=== PATIENT | female | born 1995 | race Caucasian/White ===

== ENCOUNTER 2022-03-07 13:03 | Inpatient (IN) | payer BC, SELFPAY ==
--- NOTE | 2022-03-07 13:10 | ED.GENADULT ---
HPI - General Adult General Chief complaint: Altered Mental Status <JOANN Triana - Last Filed: 03/07/22 17:38> Stated complaint: PSYCH EVAL <JOANN Triana - Last Filed: 03/07/22 17:38> Time Seen by Provider: 03/07/22 13:10 <JOANN Triana - Last Filed: 03/07/22 17:38> Source: patient, family (father) and EMS <JOANN Triana - Last Filed: 03/07/22 17:38> Mode of arrival: EMS <JOANN Triana Last Filed: 03/07/22 17:38> Limitations: no limitations <JOANN Triana Last Filed: 03/07/22 17:38> History of Present Illness HPI narrative: Patient is a 26 year old female presenting to the emergency department today after refusing to take her medications, not eating, and not drinking for 3 days. EMS states that the patient was picked up at [facility] where she was inpatient for psychosis and depression. I spoke to the staff taking care of her at [facility] who stated that the patient was refusing to take her medication, eat, drink, or even get out of bed for the entire 72 hours she was in their facility. Staff stated that the patient was prescribed Olanzapine and Lexapro but never took a dose. Patient's father states that he would like the patient to be admitted in patient here and started on the medications she is supposed to be on. Patient's father states that even though she only looks depressed now, she has moments of delusions and psychosis. Patient denies any dizziness, lightheadedness, abdominal pain, nausea, vomiting, fever, chills, blurry vision, double vision, loss of vision, chest pain, difficulty breathing, shortness of breath, back pain, night sweats, pain with urination, increased urinary frequency, increased urinary urgency, blood in her urine or stool, syncope or a near syncopal episode, recent trauma or falls, bowel incontinence, bladder incontinence, bowel retention, bladder retention, or any other complaints at this time. 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 Patient states that she would like a shower. <JOANN Triana Last Filed: 03/07/22 17:38> Onset (ago): day(s) <JOANN Triana - Last Filed: 03/07/22 17:38> Severity: moderate <JOANN Triana - Last Filed: 03/07/22 17:38> Severity scale (1-10): 4 <JOANN Triana - Last Filed: 03/07/22 17:38> Relieving factors: none <JOANN Triana - Last Filed: 03/07/22 17:38> Exacerbating factors: none <JOANN Triana - Last Filed: 03/07/22 17:38> Associated symptoms: denies other symptoms <JOANN Triana - Last Filed: 03/07/22 17:38> Treatments prior to arrival: none <JOANN Triana - Last Filed: 03/07/22 17:38> Related Data Home medications: Home Medications Medication Instructions Recorded Confirmed albuterol sulfate 90 mcg/actuation 2 puff inhalation QID PRN Dyspnea 03/07/22 03/07/22 aerosol inhaler escitalopram oxalate 10 mg tablet 10 mg PO DAILY 03/07/22 03/07/22 hydroxyzine HCl 50 mg tablet 50 mg PO Q6H PRN Anxiety 03/07/22 03/07/22 loratadine 10 mg tablet 10 mg PO DAILY PRN Allergy Symptoms 03/07/22 03/07/22 lorazepam 0.5 mg tablet 0.5 mg PO Q6H PRN Anxiety 03/07/22 03/07/22 melatonin 3 mg tablet 3 mg PO BEDTIME 03/07/22 03/07/22 olanzapine 2.5 mg tablet 2.5 mg PO BID 03/07/22 03/07/22 <JOANN Triana - Last Filed: 03/07/22 17:38> Allergies/adverse reactions: Allergies Allergy/AdvReac Type Severity Reaction Status Date / Time No Known Allergies Allergy Verified 03/07/22 13:22 <JOANN Triana - Last Filed: 03/07/22 17:38> Review of Systems Constitutional: Constitutional: Reports no additional constitutional complaints, Denies chills, Denies fever(s), Reports lethargy, Denies night sweats and Reports poor appetite <JOANN Triana - Last Filed: 03/07/22 17:38> Eyes: Eyes: Reports no additional eye complaints, Denies blurry vision, Denies change in vision, Denies diplopia, Denies eye discharge, Denies loss of vision and Denies eye pain <JOANN Triana Last Filed: 03/07/22 17:38> ENT: Denies dizziness <JOANN Triana Last Filed: 03/07/22 17:38> Cardiovascular: Cardiovascular: Reports no additional cardiovascular complaints, Denies chest pain, Denies lightheadedness, Denies Loss of Consciousness and Denies dyspnea <JOANN Triana - Last Filed: 03/07/22 17:38> Respiratory: Respiratory: Reports no additional respiratory complaints and Denies dyspnea <JOANN Triana Last Filed: 03/07/22 17:38> Gastrointestinal: Gastrointestinal: Reports no additional gastrointestinal complaints, Denies abdominal pain, Denies melena, Denies hematochezia, Denies change in bowel habits and Denies change in stool character <JOANN Triana Last Filed: 03/07/22 17:38> Genitourinary: Genitourinary: Denies hematuria, Denies urinary frequency, Denies dysuria, Denies urinary incontinence, Denies urinary hesitancy and Denies urinary urgency <JOANN Triana Last Filed: 03/07/22 17:38> Musculoskeletal: Musculoskeletal: Reports no additional musculoskeletal complaints, Denies numbness and Denies tingling <JOANN Triana Last Filed: 03/07/22 17:38> Neurologic: Denies dizziness, Denies loss of vision, Denies numbness and Denies tingling <JOANN Triana Last Filed: 03/07/22 17:38> Psychiatric: Psychiatric: Reports depression, Reports hopelessness, Denies homicidal ideation and Denies suicidal ideation <JOANN Triana Last Filed: 03/07/22 17:38> Endocrine: Endocrine: Reports no additional endocrine complaints <JOANN Triana Last Filed: 03/07/22 17:38> Hematologic/Lymphatic: Hematologic/Lymphatic: Reports no additional hematologic/lymphatic complaints <JOANN Triana - Last Filed: 03/07/22 17:38> Allergic/Immunologic: Allergic/Immunologic: Reports no additional allergic/immunologic complaints <JOANN Triana - Last Filed: 03/07/22 17:38> [facility] Past Medical History Attestation statement: The following information was validated with the patient. (and the patient's father) <JOANN Triana - Last Filed: 03/07/22 17:38> Source: old records reviewed and obtained from family (patient's father) <JOANN Triana - Last Filed: 03/07/22 17:38> Social History Social History: Social History Advance Directives: No Advance Directives Information Provided: Yes Healthcare Proxy: No Guardian: No <JOANN Triana - Last Filed: 03/07/22 17:38> Physical Exam ED Vital Signs: Vital Signs - 24 hr 03/08/22 10:30 03/08/22 16:00 03/08/22 17:51 Temperature 97.9 F 97.9 F Pulse Rate 59 58 67 Respiratory Rate 16 18 Blood Pressure 105/66 114/78 115/83 Pulse Oximetry 98 98 97 Oxygen Delivery Method Room Air Room Air Room Air 03/09/22 06:20 03/09/22 07:53 Temperature 97.8 F 98.1 F Pulse Rate 53 69 Respiratory Rate 16 19 Blood Pressure 115/76 115/78 Pulse Oximetry 98 96 Oxygen Delivery Method Room Air Room Air BMI result Body Mass Index 18.8 <JOANN Triana - Last Filed: 03/07/22 17:38> Vital Signs - 24 hr 03/08/22 10:30 03/08/22 16:00 03/08/22 17:51 Temperature 97.9 F 97.9 F Pulse Rate 59 58 67 Respiratory Rate 16 18 Blood Pressure 105/66 114/78 115/83 Pulse Oximetry 98 98 97 Oxygen Delivery Method Room Air Room Air Room Air 03/09/22 06:20 03/09/22 07:53 Temperature 97.8 F 98.1 F Pulse Rate 53 69 Respiratory Rate 16 19 Blood Pressure 115/76 115/78 Pulse Oximetry 98 96 Oxygen Delivery Method Room Air Room Air BMI result Body Mass Index 18.8 <Damien Wilson MD - Last Filed: 03/09/22 10:07> Const General: cooperative, no acute distress, alert and awake <JOANN Triana - Last Filed: 03/07/22 17:38> Nutritional Appearance: well nourished <Airam Walsh PA - Last Filed: 03/07/22 17:38> Orientation/consciousness: patient oriented x3 <JOANN Triana - Last Filed: 03/07/22 17:38> Limitations: no limitations <Airam Walsh PA - Last Filed: 03/07/22 17:38> HENMT Head: Yes normal to inspection and Yes atraumatic <Airam Walsh PA - Last Filed: 03/07/22 17:38> Ears: hearing grossly normal bilaterally and external ears normal <Airam Walsh PA - Last Filed: 03/07/22 17:38> General nose exam: Normal external nose present, no nasal discharge noted and no epistaxis <Airam Walsh PA - Last Filed: 03/07/22 17:38> Face and sinus: Yes normal facial exam, No abrasion and No laceration <Airam Walsh PA - Last Filed: 03/07/22 17:38> Mouth: Normal oral and palatal mucosa present, no drooling and no muffled voice <Airam Walsh PA - Last Filed: 03/07/22 17:38> Eyes General: appearance normal, both eyes and all related structures <JOANN Triana - Last Filed: 03/07/22 17:38> Periorbital: periorbital findings normal <Airam Walsh PA - Last Filed: 03/07/22 17:38> Eyelids: Yes eyelids normal <Airam Walsh PA - Last Filed: 03/07/22 17:38> Conjunctivae: conjunctivae normal <Airam Walsh PA - Last Filed: 03/07/22 17:38> Pupils: Equal, round and reactive pupils present <Airam Walsh PA - Last Filed: 03/07/22 17:38> EOM: EOMs intact bilaterally <Airam Walsh PA - Last Filed: 03/07/22 17:38> Neck Neck: Yes normal visual inspection, Yes full ROM and Yes no lymphadenopathy <Airam Walsh PA - Last Filed: 03/07/22 17:38> Chest Chest palpation & inspection: normal inspection of the chest <Airam ChristianJOANN barry - Last Filed: 03/07/22 17:38> Resp Effort & Inspection: normal respiratory effort and able to speak in complete sentences <Airam WalshJOANN - Last Filed: 03/07/22 17:38> Auscultation: clear to auscultation bilaterally <Airam ChristianJOANN barry - Last Filed: 03/07/22 17:38> Cardio Rate: regular rate <Airam Walsh [place] - Last Filed: 03/07/22 17:38> Rhythm: regular rhythm <Airam WalshJOANN - Last Filed: 03/07/22 17:38> GI Inspection: Yes normal to inspection <Airam WalshJOANN - Last Filed: 03/07/22 17:38> Neuro General: patient oriented x3 and moves all extremities <Airamglenn ChristianJOANN barry - Last Filed: 03/07/22 17:38> Cranial nerves: Yes Equal, round and reactive pupils present <Airam WalshJOANN - Last Filed: 03/07/22 17:38> Cognition (Neuro): normal cognition <Airam ChristianJOANN barry - Last Filed: 03/07/22 17:38> Motor exam (neuro): 5/5 motor strength present throughout <Airam WalshJOANN - Last Filed: 03/07/22 17:38> Sensory Exam: Normal double simultaneous stimulation for sensation <Airam ChristianJOANN barry - Last Filed: 03/07/22 17:38> Coordination: [id number] test normal <Airam ChristianJOANN barry - Last Filed: 03/07/22 17:38> Extrem General: Yes normal to inspection, Yes full ROM and Yes capillary refill normal <Airam ChristianJOANN barry - Last Filed: 03/07/22 17:38> Psych Appearance: disheveled <Airamglenn ChristianJOANN barry - Last Filed: 03/07/22 17:38> Mental Status: mental status grossly normal <Airamglenn ChristianJOANN barry - Last Filed: 03/07/22 17:38> Speech and movement: Clear speech present <Airam JOANN Walsh - Last Filed: 03/07/22 17:38> Affect: Indifferent affect present <JOANN Triana - Last Filed: 03/07/22 17:38> Attitude: Guarded attititude/behavior present and Avoids eye contact (attititude/behavior) <JOANN Triana - Last Filed: 03/07/22 17:38> Thought process: Normal thought process present <JOANN Triana - Last Filed: 03/07/22 17:38> Thought content: Depressive thoughts present <JOANN Triana - Last Filed: 03/07/22 17:38> Insight: Limited insight present (Psych) <JOANN Triana - Last Filed: 03/07/22 17:38> Course Reevaluation(s) Reevaluation #1: 10 Am 03/09/2022 pt was signed out to me at [address] Smith,no new complaints,continue bed search section 12 for Depression <Damien Wilson MD - Last Filed: 03/09/22 10:07> Medical Decision Making MDM Narrative Medical decision making narrative: Patient is a 26 year old female presenting to the emergency department today with depression and non-compliance. Patient's physical exam showed an indifferent, disheveled, individual. Patient's initial blood sugar was 53. I attempted to have the patient eat or drink but she refused all requests to do so. Patient eventually relented to having an IV placed and she was given D50 at that time with a slow rate D5W drip. Patient's blood work was unremarkable. Patient's urine is still pending at this time. I explained my physical exam findings as well as all test results to the patient and the patient's father. I answered all questions asked by the patient and the patient's father. I spoke to the CARE team who agreed that the patient needs inpatient psychiatric hospitalization here [place] [facility] As of right now, the patient is staying here voluntarily. If she were to leave, a section 12 should be obtained as she is a harm to herself by participating in medication non-compliance and actively starving herself. <JOANN Triana - Last Filed: 03/07/22 17:38> Medical Records Medical records reviewed: Yes I reviewed the patient's medical records. <JOANN Triana - Last Filed: 03/07/22 17:38> Lab Data Lab results reviewed: Yes I reviewed the patient's lab results. <JOANN Triana - Last Filed: 03/07/22 17:38> Result diagrams: : 03/07/22 17:02 03/07/22 17:02 <JOANN Triana - Last Filed: 03/07/22 17:38> Labs: Lab Results 03/07/22 03/07/22 03/07/22 Range/Units 13:26 15:05 17:02 WBC (4.8-10.8) X10*3/uL RBC (4.20-5.50) X10*6/uL Hgb (12.0-16.0) g/dl Hct (37.0-47.0) % MCV (80.0-98.0) fL MCH (27.0-33.0) pg MCHC (31.0-35.0) g/dl RDW (11.0-16.0) % Plt Count (160-400) X10*3/uL MPV (9.4-12.3) fL Immature Gran % (Auto) (0.0-0.4) % Neut % (Auto) (45-73) % Lymph % (Auto) (20-40) % [place] % (Auto) (2-11) % Eos % (Auto) (0-4) % Baso % (Auto) (0-2) % Lymph # (Auto) (1.2-4.9) X10*3/uL [place] # (Auto) (0.1-1.2) X10*3/uL Eos # (Auto) (0.0-0.4) X10*3/uL Baso # (Auto) (0.0-0.2) X10*3/uL Abs Immat Gran (auto) (0.00-0.03) X10*3/uL Absolute Neuts (auto) (2.0-8.3) x10*3/uL Absolute Nucleated RBC (0.0-0.012) X10*3/uL Nucleated RBC % (auto) (0.0-0.2) /100WBC Sodium 136 (135-145) mmol/L Potassium 4.4 (3.3-5.1) mmol/L Chloride 106 (96-108) mmol/L Carbon Dioxide 18 L (22-29) mmol/L Anion Gap 16 (12-20) BUN 10 (9-16) mg/dL Creatinine 0.89 (0.5-1.4) mg/dL Estim Creat Clear Calc 76.8 Estimated GFR > 60 POC Glucose 53 L* 204 H (60-115) mg/dL Random Glucose 147 H (60-115) mg/dL Calcium 9.2 (8.4-10.2) mg/dL Total Bilirubin 1.3 H (0.0-1.0) mg/dL AST 23 (5-31) U/L ALT 27 (0-31) U/L Alkaline Phosphatase 51 (39-117) U/L Total Protein 7.7 (6.5-8.0) g/dL Albumin 4.6 (3.5-5.0) g/dL Urine Test (NEGATIVE) Salicylates < 5.0 L (15-30) mg/dL Urine Opiates Screen (Not Detect) Urine Fentanyl Screen (Not Detect) Acetaminophen < 1 (<30) mcg/mL Ur Barbiturates Screen (Not Detect) Ur Phencyclidine Scrn (Not Detect) Ur Amphetamines Screen (Not Detect) U Benzodiazepines Scrn (Not Detect) Urine Cocaine Screen (Not Detect) U Marijuana (THC) Screen (Not Detect) Ethyl Alcohol mg/dL COVID-19 (JESSICA) (Negative) COVID-19 Clin Com 03/07/22 03/07/22 03/07/22 Range/Units 17:02 17:02 19:30 WBC 5.6 (4.8-10.8) X10*3/uL RBC 4.86 (4.20-5.50) X10*6/uL Hgb 14.1 (12.0-16.0) g/dl Hct 41.4 (37.0-47.0) % MCV 85.2 (80.0-98.0) fL MCH 29.0 (27.0-33.0) pg MCHC 34.1 (31.0-35.0) g/dl RDW 13.2 (11.0-16.0) % Plt Count 319 (160-400) X10*3/uL MPV 9.8 (9.4-12.3) fL Immature Gran % (Auto) 0.0 (0.0-0.4) % Neut % (Auto) 51.5 (45-73) % Lymph % (Auto) 37.7 (20-40) % [place] % (Auto) 9.5 (2-11) % Eos % (Auto) 0.4 (0-4) % Baso % (Auto) 0.9 (0-2) % Lymph # (Auto) 2.1 (1.2-4.9) X10*3/uL [place] # (Auto) 0.5 (0.1-1.2) X10*3/uL Eos # (Auto) 0.0 (0.0-0.4) X10*3/uL Baso # (Auto) 0.1 (0.0-0.2) X10*3/uL Abs Immat Gran (auto) 0.00 (0.00-0.03) X10*3/uL Absolute Neuts (auto) 2.9 (2.0-8.3) x10*3/uL Absolute Nucleated RBC 0.000 (0.0-0.012) X10*3/uL Nucleated RBC % (auto) 0.0 (0.0-0.2) /100WBC Sodium (135-145) mmol/L Potassium (3.3-5.1) mmol/L Chloride (96-108) mmol/L Carbon Dioxide (22-29) mmol/L Anion Gap (12-20) BUN (9-16) mg/dL Creatinine (0.5-1.4) mg/dL Estim Creat Clear Calc Estimated GFR POC Glucose (60-115) mg/dL Random Glucose (60-115) mg/dL Calcium (8.4-10.2) mg/dL Total Bilirubin (0.0-1.0) mg/dL AST (5-31) U/L ALT (0-31) U/L Alkaline Phosphatase (39-117) U/L Total Protein (6.5-8.0) g/dL Albumin (3.5-5.0) g/dL Urine Test (NEGATIVE) Salicylates (15-30) mg/dL Urine Opiates Screen (Not Detect) Urine Fentanyl Screen (Not Detect) Acetaminophen (<30) mcg/mL Ur Barbiturates Screen (Not Detect) Ur Phencyclidine Scrn (Not Detect) Ur Amphetamines Screen (Not Detect) U Benzodiazepines Scrn (Not Detect) Urine Cocaine Screen (Not Detect) U Marijuana (THC) Screen (Not Detect) Ethyl Alcohol < 10 mg/dL COVID-19 (JESSICA) Negative (Negative) COVID-19 Clin Com See Note 03/08/22 03/08/22 03/08/22 Range/Units 07:20 09:43 09:43 WBC (4.8-10.8) X10*3/uL RBC (4.20-5.50) X10*6/uL Hgb (12.0-16.0) g/dl Hct (37.0-47.0) % MCV (80.0-98.0) fL MCH (27.0-33.0) pg MCHC (31.0-35.0) g/dl RDW (11.0-16.0) % Plt Count (160-400) X10*3/uL MPV (9.4-12.3) fL Immature Gran % (Auto) (0.0-0.4) % Neut % (Auto) (45-73) % Lymph % (Auto) (20-40) % [place] % (Auto) (2-11) % Eos % (Auto) (0-4) % Baso % (Auto) (0-2) % Lymph # (Auto) (1.2-4.9) X10*3/uL [place] # (Auto) (0.1-1.2) X10*3/uL Eos # (Auto) (0.0-0.4) X10*3/uL Baso # (Auto) (0.0-0.2) X10*3/uL Abs Immat Gran (auto) (0.00-0.03) X10*3/uL Absolute Neuts (auto) (2.0-8.3) x10*3/uL Absolute Nucleated RBC (0.0-0.012) X10*3/uL Nucleated RBC % (auto) (0.0-0.2) /100WBC Sodium (135-145) mmol/L Potassium (3.3-5.1) mmol/L Chloride (96-108) mmol/L Carbon Dioxide (22-29) mmol/L Anion Gap (12-20) BUN (9-16) mg/dL Creatinine (0.5-1.4) mg/dL Estim Creat Clear Calc Estimated GFR POC Glucose 75 (60-115) mg/dL Random Glucose (60-115) mg/dL Calcium (8.4-10.2) mg/dL Total Bilirubin (0.0-1.0) mg/dL AST (5-31) U/L ALT (0-31) U/L Alkaline Phosphatase (39-117) U/L Total Protein (6.5-8.0) g/dL Albumin (3.5-5.0) g/dL Urine Test NEGATIVE (NEGATIVE) Salicylates (15-30) mg/dL Urine Opiates Screen Not Detected (Not Detect) Urine Fentanyl Screen Not Detected (Not Detect) Acetaminophen (<30) mcg/mL Ur Barbiturates Screen Not Detected (Not Detect) Ur Phencyclidine Scrn Not Detected (Not Detect) Ur Amphetamines Screen Not Detected (Not Detect) U Benzodiazepines Scrn Not Detected (Not Detect) Urine Cocaine Screen Not Detected (Not Detect) U Marijuana (THC) Screen Not Detected (Not Detect) Ethyl Alcohol mg/dL COVID-19 (JESSICA) (Negative) COVID-19 Clin Com 03/08/22 Range/Units 16:09 WBC (4.8-10.8) X10*3/uL RBC (4.20-5.50) X10*6/uL Hgb (12.0-16.0) g/dl Hct (37.0-47.0) % MCV (80.0-98.0) fL MCH (27.0-33.0) pg MCHC (31.0-35.0) g/dl RDW (11.0-16.0) % Plt Count (160-400) X10*3/uL MPV (9.4-12.3) fL Immature Gran % (Auto) (0.0-0.4) % Neut % (Auto) (45-73) % Lymph % (Auto) (20-40) % [place] % (Auto) (2-11) % Eos % (Auto) (0-4) % Baso % (Auto) (0-2) % Lymph # (Auto) (1.2-4.9) X10*3/uL [place] # (Auto) (0.1-1.2) X10*3/uL Eos # (Auto) (0.0-0.4) X10*3/uL Baso # (Auto) (0.0-0.2) X10*3/uL Abs Immat Gran (auto) (0.00-0.03) X10*3/uL Absolute Neuts (auto) (2.0-8.3) x10*3/uL Absolute Nucleated RBC (0.0-0.012) X10*3/uL Nucleated RBC % (auto) (0.0-0.2) /100WBC Sodium (135-145) mmol/L Potassium (3.3-5.1) mmol/L Chloride (96-108) mmol/L Carbon Dioxide (22-29) mmol/L Anion Gap (12-20) BUN (9-16) mg/dL Creatinine (0.5-1.4) mg/dL Estim Creat Clear Calc Estimated GFR POC Glucose 61 (60-115) mg/dL Random Glucose (60-115) mg/dL Calcium (8.4-10.2) mg/dL Total Bilirubin (0.0-1.0) mg/dL AST (5-31) U/L ALT (0-31) U/L Alkaline Phosphatase (39-117) U/L Total Protein (6.5-8.0) g/dL Albumin (3.5-5.0) g/dL Urine Test (NEGATIVE) Salicylates (15-30) mg/dL Urine Opiates Screen (Not Detect) Urine Fentanyl Screen (Not Detect) Acetaminophen (<30) mcg/mL Ur Barbiturates Screen (Not Detect) Ur Phencyclidine Scrn (Not Detect) Ur Amphetamines Screen (Not Detect) U Benzodiazepines Scrn (Not Detect) Urine Cocaine Screen (Not Detect) U Marijuana (THC) Screen (Not Detect) Ethyl Alcohol mg/dL COVID-19 (JESSICA) (Negative) COVID-19 Clin Com <JOANN Triana - Last Filed: 03/07/22 17:38> Lab Results 03/07/22 03/07/22 03/07/22 Range/Units 13:26 15:05 17:02 WBC (4.8-10.8) X10*3/uL RBC (4.20-5.50) X10*6/uL Hgb (12.0-16.0) g/dl Hct (37.0-47.0) % MCV (80.0-98.0) fL MCH (27.0-33.0) pg MCHC (31.0-35.0) g/dl RDW (11.0-16.0) % Plt Count (160-400) X10*3/uL MPV (9.4-12.3) fL Immature Gran % (Auto) (0.0-0.4) % Neut % (Auto) (45-73) % Lymph % (Auto) (20-40) % [place] % (Auto) (2-11) % Eos % (Auto) (0-4) % Baso % (Auto) (0-2) % Lymph # (Auto) (1.2-4.9) X10*3/uL [place] # (Auto) (0.1-1.2) X10*3/uL Eos # (Auto) (0.0-0.4) X10*3/uL Baso # (Auto) (0.0-0.2) X10*3/uL Abs Immat Gran (auto) (0.00-0.03) X10*3/uL Absolute Neuts (auto) (2.0-8.3) x10*3/uL Absolute Nucleated RBC (0.0-0.012) X10*3/uL Nucleated RBC % (auto) (0.0-0.2) /100WBC Sodium 136 (135-145) mmol/L Potassium 4.4 (3.3-5.1) mmol/L Chloride 106 (96-108) mmol/L Carbon Dioxide 18 L (22-29) mmol/L Anion Gap 16 (12-20) BUN 10 (9-16) mg/dL Creatinine 0.89 (0.5-1.4) mg/dL Estim Creat Clear Calc 76.8 Estimated GFR > 60 POC Glucose 53 L* 204 H (60-115) mg/dL Random Glucose 147 H (60-115) mg/dL Calcium 9.2 (8.4-10.2) mg/dL Total Bilirubin 1.3 H (0.0-1.0) mg/dL AST 23 (5-31) U/L ALT 27 (0-31) U/L Alkaline Phosphatase 51 (39-117) U/L Total Protein 7.7 (6.5-8.0) g/dL Albumin 4.6 (3.5-5.0) g/dL Urine Test (NEGATIVE) Salicylates < 5.0 L (15-30) mg/dL Urine Opiates Screen (Not Detect) Urine Fentanyl Screen (Not Detect) Acetaminophen < 1 (<30) mcg/mL Ur Barbiturates Screen (Not Detect) Ur Phencyclidine Scrn (Not Detect) Ur Amphetamines Screen (Not Detect) U Benzodiazepines Scrn (Not Detect) Urine Cocaine Screen (Not Detect) U Marijuana (THC) Screen (Not Detect) Ethyl Alcohol mg/dL COVID-19 (JESSICA) (Negative) COVID-19 Clin Com 03/07/22 03/07/22 03/07/22 Range/Units 17:02 17:02 19:30 WBC 5.6 (4.8-10.8) X10*3/uL RBC 4.86 (4.20-5.50) X10*6/uL Hgb 14.1 (12.0-16.0) g/dl Hct 41.4 (37.0-47.0) % MCV 85.2 (80.0-98.0) fL MCH 29.0 (27.0-33.0) pg MCHC 34.1 (31.0-35.0) g/dl RDW 13.2 (11.0-16.0) % Plt Count 319 (160-400) X10*3/uL MPV 9.8 (9.4-12.3) fL Immature Gran % (Auto) 0.0 (0.0-0.4) % Neut % (Auto) 51.5 (45-73) % Lymph % (Auto) 37.7 (20-40) % [place] % (Auto) 9.5 (2-11) % Eos % (Auto) 0.4 (0-4) % Baso % (Auto) 0.9 (0-2) % Lymph # (Auto) 2.1 (1.2-4.9) X10*3/uL [place] # (Auto) 0.5 (0.1-1.2) X10*3/uL Eos # (Auto) 0.0 (0.0-0.4) X10*3/uL Baso # (Auto) 0.1 (0.0-0.2) X10*3/uL Abs Immat Gran (auto) 0.00 (0.00-0.03) X10*3/uL Absolute Neuts (auto) 2.9 (2.0-8.3) x10*3/uL Absolute Nucleated RBC 0.000 (0.0-0.012) X10*3/uL Nucleated RBC % (auto) 0.0 (0.0-0.2) /100WBC Sodium (135-145) mmol/L Potassium (3.3-5.1) mmol/L Chloride (96-108) mmol/L Carbon Dioxide (22-29) mmol/L Anion Gap (12-20) BUN (9-16) mg/dL Creatinine (0.5-1.4) mg/dL Estim Creat Clear Calc Estimated GFR POC Glucose (60-115) mg/dL Random Glucose (60-115) mg/dL Calcium (8.4-10.2) mg/dL Total Bilirubin (0.0-1.0) mg/dL AST (5-31) U/L ALT (0-31) U/L Alkaline Phosphatase (39-117) U/L Total Protein (6.5-8.0) g/dL Albumin (3.5-5.0) g/dL Urine Test (NEGATIVE) Salicylates (15-30) mg/dL Urine Opiates Screen (Not Detect) Urine Fentanyl Screen (Not Detect) Acetaminophen (<30) mcg/mL Ur Barbiturates Screen (Not Detect) Ur Phencyclidine Scrn (Not Detect) Ur Amphetamines Screen (Not Detect) U Benzodiazepines Scrn (Not Detect) Urine Cocaine Screen (Not Detect) U Marijuana (THC) Screen (Not Detect) Ethyl Alcohol < 10 mg/dL COVID-19 (JESSICA) Negative (Negative) COVID-19 Clin Com See Note 03/08/22 03/08/22 03/08/22 Range/Units 07:20 09:43 09:43 WBC (4.8-10.8) X10*3/uL RBC (4.20-5.50) X10*6/uL Hgb (12.0-16.0) g/dl Hct (37.0-47.0) % MCV (80.0-98.0) fL MCH (27.0-33.0) pg MCHC (31.0-35.0) g/dl RDW (11.0-16.0) % Plt Count (160-400) X10*3/uL MPV (9.4-12.3) fL Immature Gran % (Auto) (0.0-0.4) % Neut % (Auto) (45-73) % Lymph % (Auto) (20-40) % [place] % (Auto) (2-11) % Eos % (Auto) (0-4) % Baso % (Auto) (0-2) % Lymph # (Auto) (1.2-4.9) X10*3/uL [place] # (Auto) (0.1-1.2) X10*3/uL Eos # (Auto) (0.0-0.4) X10*3/uL Baso # (Auto) (0.0-0.2) X10*3/uL Abs Immat Gran (auto) (0.00-0.03) X10*3/uL Absolute Neuts (auto) (2.0-8.3) x10*3/uL Absolute Nucleated RBC (0.0-0.012) X10*3/uL Nucleated RBC % (auto) (0.0-0.2) /100WBC Sodium (135-145) mmol/L Potassium (3.3-5.1) mmol/L Chloride (96-108) mmol/L Carbon Dioxide (22-29) mmol/L Anion Gap (12-20) BUN (9-16) mg/dL Creatinine (0.5-1.4) mg/dL Estim Creat Clear Calc Estimated GFR POC Glucose 75 (60-115) mg/dL Random Glucose (60-115) mg/dL Calcium (8.4-10.2) mg/dL Total Bilirubin (0.0-1.0) mg/dL AST (5-31) U/L ALT (0-31) U/L Alkaline Phosphatase (39-117) U/L Total Protein (6.5-8.0) g/dL Albumin (3.5-5.0) g/dL Urine Test NEGATIVE (NEGATIVE) Salicylates (15-30) mg/dL Urine Opiates Screen Not Detected (Not Detect) Urine Fentanyl Screen Not Detected (Not Detect) Acetaminophen (<30) mcg/mL Ur Barbiturates Screen Not Detected (Not Detect) Ur Phencyclidine Scrn Not Detected (Not Detect) Ur Amphetamines Screen Not Detected (Not Detect) U Benzodiazepines Scrn Not Detected (Not Detect) Urine Cocaine Screen Not Detected (Not Detect) U Marijuana (THC) Screen Not Detected (Not Detect) Ethyl Alcohol mg/dL COVID-19 (JESSICA) (Negative) COVID-19 Clin Com 03/08/22 Range/Units 16:09 WBC (4.8-10.8) X10*3/uL RBC (4.20-5.50) X10*6/uL Hgb (12.0-16.0) g/dl Hct (37.0-47.0) % MCV (80.0-98.0) fL MCH (27.0-33.0) pg MCHC (31.0-35.0) g/dl RDW (11.0-16.0) % Plt Count (160-400) X10*3/uL MPV (9.4-12.3) fL Immature Gran % (Auto) (0.0-0.4) % Neut % (Auto) (45-73) % Lymph % (Auto) (20-40) % [place] % (Auto) (2-11) % Eos % (Auto) (0-4) % Baso % (Auto) (0-2) % Lymph # (Auto) (1.2-4.9) X10*3/uL [place] # (Auto) (0.1-1.2) X10*3/uL Eos # (Auto) (0.0-0.4) X10*3/uL Baso # (Auto) (0.0-0.2) X10*3/uL Abs Immat Gran (auto) (0.00-0.03) X10*3/uL Absolute Neuts (auto) (2.0-8.3) x10*3/uL Absolute Nucleated RBC (0.0-0.012) X10*3/uL Nucleated RBC % (auto) (0.0-0.2) /100WBC Sodium (135-145) mmol/L Potassium (3.3-5.1) mmol/L Chloride (96-108) mmol/L Carbon Dioxide (22-29) mmol/L Anion Gap (12-20) BUN (9-16) mg/dL Creatinine (0.5-1.4) mg/dL Estim Creat Clear Calc Estimated GFR POC Glucose 61 (60-115) mg/dL Random Glucose (60-115) mg/dL Calcium (8.4-10.2) mg/dL Total Bilirubin (0.0-1.0) mg/dL AST (5-31) U/L ALT (0-31) U/L Alkaline Phosphatase (39-117) U/L Total Protein (6.5-8.0) g/dL Albumin (3.5-5.0) g/dL Urine Test (NEGATIVE) Salicylates (15-30) mg/dL Urine Opiates Screen (Not Detect) Urine Fentanyl Screen (Not Detect) Acetaminophen (<30) mcg/mL Ur Barbiturates Screen (Not Detect) Ur Phencyclidine Scrn (Not Detect) Ur Amphetamines Screen (Not Detect) U Benzodiazepines Scrn (Not Detect) Urine Cocaine Screen (Not Detect) U Marijuana (THC) Screen (Not Detect) Ethyl Alcohol mg/dL COVID-19 (JESSICA) (Negative) COVID-19 Clin Com <Damien Wilson MD - Last Filed: 03/09/22 10:07> Discharge Plan Discharge Clinical Impression: Hypoglycemia, Depression, Refuses to eat, Non compliance w medication regimen <JOANN Triana - Last Filed: 03/07/22 17:38> Patient Disposition: Still a Patient <JOANN Triana - Last Filed: 03/07/22 17:38> Prescriptions: No Action hydroxyzine HCl 50 mg Tablet 50 mg PO Q6H PRN (Reason: Anxiety) melatonin 3 mg Tablet 3 mg PO BEDTIME olanzapine 2.5 mg Tablet 2.5 mg PO BID lorazepam 0.5 mg Tablet 0.5 mg PO Q6H PRN (Reason: Anxiety) albuterol sulfate 90 mcg/actuation Hfa Aerosol Inhaler 2 puff INHALATION QID PRN (Reason: Dyspnea) loratadine 10 mg Tablet 10 mg PO DAILY PRN (Reason: Allergy Symptoms) escitalopram oxalate 10 mg Tablet 10 mg PO DAILY <JOANN Triana - Last Filed: 03/07/22 17:38> Print Language: Beninese <JOANN Triana - Last Filed: 03/07/22 17:38>
[2022-03-07 13:19] VITALS: BP 116/58; BP 118/82; PULSE 65; PULSE 67; RESP 14; TEMP 36.5; O2SAT 100; O2SAT 99; BMI 18.8
--- NOTE | 2022-03-07 13:46 | PC.NURSE ---
this nurse took pt POC upon arrival, result 53. JOANN Alegria aware, asked to try juice. Pt tolerating PO, took a couple sips of cranberry juice, refusing to drink any more. JOANN Alegria aware and speaking to pt at this time
[2022-03-07] MEDS: Dextrose 50 % 25 GM/50 ML SYRINGE IVPUSH (14:21)
[2022-03-07] MEDS: Dextrose 5 % and 0.9 % NaCl 1,000 ML 100 ML IVCONT (14:24)
[2022-03-07 15:09] LABS: Glucose, Whole Blood 204 mg/dL (60-115)
[2022-03-07 15:09] LABS: Glucose, Whole Blood 53 mg/dL (60-115)
--- NOTE | 2022-03-07 15:13 | PC.NURSE ---
per verbal order of jessika johnston, d5 infusion to be decreased to 50ml/hr
--- NOTE | 2022-03-07 16:21 | PHA.MEDREC ---
Pharmacy Consult ? Medication Reconciliation Pharmacy has completed the medication reconciliation. Patient came from [facility] with med list. Elana Fu, HannahD
[2022-03-07 17:07] LABS: MANUAL DIFF FLAG NO
[2022-03-07 17:08] LABS: Basophils Absolute Auto 0.1 X10*3/uL (0.0-0.2); Basophils Percent Auto 0.9 % (0-2); Eosinophils Percent Auto 0.4 % (0-4); Hematocrit 41.4 % (37.0-47.0); Hemoglobin 14.1 g/dl (12.0-16.0); Lymphocytes Absolute Auto 2.1 X10*3/uL (1.2-4.9); Lymphocytes Percent Auto 37.7 % (20-40); Mean Corpuscular HGB Conc 34.1 g/dl (31.0-35.0); Mean Corpuscular Volume 85.2 fL (80.0-98.0); Mean Platelet Volume 9.8 fL (9.4-12.3); Monocytes Absolute Auto 0.5 X10*3/uL (0.1-1.2); Monocytes Percent Auto 9.5 % (2-11); Neutrophils Absolute Auto 2.9 x10*3/uL (2.0-8.3); Neutrophils Percent Auto 51.5 % (45-73); Platelet Count 319 X10*3/uL (160-400); Red Blood Count 4.86 X10*6/uL (4.20-5.50); Red Cell Distribution Width 13.2 % (11.0-16.0); White Blood Count 5.6 X10*3/uL (4.8-10.8)
[2022-03-07 17:28] LABS: Ethanol < 10 mg/dL
[2022-03-07 17:33] LABS: Acetaminophen LAB < 1 mcg/mL (<30); Alanine Aminotransferase 27 U/L (0-31); Albumin Level 4.6 g/dL (3.5-5.0); Alkaline Phosphatase 51 U/L (39-117); Anion Gap 16 (12-20); Aspartate Amino Transferase 23 U/L (5-31); Bilirubin Total 1.3 mg/dL (0.0-1.0); Blood Urea Nitrogen 10 mg/dL (9-16); Calcium 9.2 mg/dL (8.4-10.2); Carbon Dioxide 18 mmol/L (22-29); Chloride 106 mmol/L (96-108); Creatinine Clr Calc Pharmacy 76.8; Estimated Glomerular Filt Rate > 60; Glucose Random 147 mg/dL (60-115); Potassium 4.4 mmol/L (3.3-5.1); Salicylate < 5.0 mg/dL (15-30); Sodium 136 mmol/L (135-145); Total Protein 7.7 g/dL (6.5-8.0)
[2022-03-07 19:55] LABS: COVID-19 Test Negative (Negative); IDNOW Serial# 16C4AD1C
[2022-03-07] MEDS: OLANZapine 2.5 MG TABLET PO (20:20)
[2022-03-07 23:16] VITALS: BP 122/62; PULSE 67; RESP 16; O2SAT 98
[2022-03-08] MEDS: Dextrose 5 % and 0.9 % NaCl 1,000 ML 50 ML IVCONT (02:03)
[2022-03-08 02:05] VITALS: BP 117/62; PULSE 54; RESP 16; O2SAT 98
[2022-03-08 04:35] VITALS: RESP 16
[2022-03-08 06:04] VITALS: BP 118/64; PULSE 62; RESP 16; O2SAT 97
[2022-03-08 07:23] LABS: Glucose, Whole Blood 75 mg/dL (60-115)
[2022-03-08] MEDS: Escitalopram Oxalate 10 MG TABLET PO (09:23)
[2022-03-08] MEDS: OLANZapine 2.5 MG TABLET PO ×2 (09:23→20:27)
[2022-03-08 09:52] LABS: UPreg QC Valid YES; Urine Pregnancy NEGATIVE (NEGATIVE)
--- NOTE | 2022-03-08 09:57 | PC.NURSE ---
pt drank 3/4 of apple juice with 9 am meds this morning.
[2022-03-08 10:13] LABS: Amphetamine Screen Urine Not Detected (Not Detect); Barbiturates, Urine Not Detected (Not Detect); Benzodiazepines Screen Urine Not Detected (Not Detect); Cannabinoid Screen Urine Not Detected (Not Detect); Cocaine Screen Urine Not Detected (Not Detect); Fentanyl, urine Not Detected (Not Detect); Opiate Screen Urine Not Detected (Not Detect); Phencyclidine Screen Urine Not Detected (Not Detect)
[2022-03-08 10:30] VITALS: BP 105/66; PULSE 59; TEMP 36.6; O2SAT 98
--- NOTE | 2022-03-08 12:05 | PC.NURSE ---
Per PA, the plan is to keep her in the ED until she can start to eat and drink, then she can go upstairs for inpatient psyc, cannot go to the pod with an IV and force feed. She is taking her meds and the hope she will eat something today and drink. PA is aware of her 7am POC of 75. Continue to run the D5W.
[2022-03-08 16:00] VITALS: BP 114/78; PULSE 58; RESP 16; TEMP 36.6; O2SAT 98
[2022-03-08 16:14] LABS: Glucose, Whole Blood 61 mg/dL (60-115)
--- NOTE | 2022-03-08 16:31 | PC.NURSE ---
pt sitting up a talking with her dad, ate a couple of fries and 1/2 chicken nugget, also had a little of liquids. POC 61. D5W remains discontinued and per PA she is medically cleared and can go into the pod once a room opens.
[2022-03-08 17:51] VITALS: BP 115/83; PULSE 67; RESP 18; O2SAT 97
--- NOTE | 2022-03-09 | ECG_ITS ---
Test Reason : medical clearance Blood Pressure : / mmHG Vent. Rate : 051 BPM Atrial Rate : 051 BPM P-R Int : 138 ms QRS Dur : 074 ms QT Int : 452 ms P-R-T Axes : 074 085 074 degrees QTc Int : 416 ms Sinus bradycardia Septal infarct , age undetermined Abnormal ECG No previous ECGs available Referred By: Damien Wilson Electronically Signed By:RAYSA MANRIQUE
--- NOTE | 2022-03-09 05:52 | PC.NURSE ---
Patient slept through the night, no distress observed/reported, medication compliant, behavior calm, quiet, and non concerning, patients' father stayed with patient until 8 pm, patient was assessed by care team section 12 inpatient bed search, VSS, will continue to monitor.
[2022-03-09 06:20] VITALS: BP 115/76; PULSE 53; RESP 16; TEMP 36.6; O2SAT 98
[2022-03-09 07:53] VITALS: BP 115/78; PULSE 69; RESP 19; TEMP 36.7; O2SAT 96
[2022-03-09] MEDS: OLANZapine 2.5 MG TABLET PO ×2 (09:54→20:29)
[2022-03-09] MEDS: Escitalopram Oxalate 10 MG TABLET PO (09:54)
[2022-03-09 12:07] LABS: COVID-19 Test Negative (Negative)
[2022-03-09 16:41] VITALS: BMI 22.8
--- NOTE | 2022-03-09 17:35 | PC.ADMIT ---
Pt is a 26yrs old female admitted for disorganized thoughts and schizophrenia. Pt was transferred from [facility]. Pt appears to be confused and thought process is disorganized. Pt is alert and oriented X3, VSS, Covid negative, Tox screen negative. Pt reported that she has been refusing to take medication as well as eat and drink because she does not like [facility] environment. Pt appears anxious and not able to focus. Pt is quite and cooperative. Speech is low with regular rate and rhythm. Pt denies depression SI/HI/AH at thi time. Pt states that she wants to get her medications figured out. Pt impulse and judgment is poor, flat affect, and appears disheveled. Admission orders obtained.
[2022-03-09] MEDS: Melatonin 3 MG TABLET PO (20:29)
[2022-03-10] MEDS: OLANZapine 2.5 MG TABLET PO (08:43)
--- NOTE | 2022-03-10 10:17 | HO.PSYADMNOT ---
HPI Date of Service: 03/10/22 Chief Complaint: disorganized Sources of Information: patient interviewed, chart reviewed and crisis/core team assessment reviewed HPI Subjective Notes: Cox Warning and Conditional Voluntary Narrative: Patient is a 26-year-old female with history of psychosis, depression, anxiety recently discharged from [facility] (intending to transport her to [place]?) after refusing to take medications, eat or drink or get out of bed for 3 days. On arriving to ED, note reports Patient...indifferent, disheveled...[with] blood sugar was 53... [refused to] eat or drink...[but] relented to having an IV placed and...given D50...with a slow rate D5W drip. Patient stabilized signed a CV coming to M5. On admission, patient seems confused, with speech latency/thought blocking and trouble paying attention to conversation, saying she forgot what the question was. She explained that she can have very hard time making decisions. She says she is not sure why she went to [facility] in the 1st place. Thinks about it for a moment and then says for my mental health. She cannot think of any details however. She says she is not sure why she left but that she had mixed feelings about being there; she says it was noisy there. She agrees she was not eating at that facility but is not sure why. Discussed her anxiety and patient says it can be hard to make decisions due to trying to follow rules which can make it hard to get through the day. This carries over in difficulties deciding what to eat and she says I can look at someone else's food and get repulsive. It also affects decisions on what to wear and she lists should she choose something that is comfortable, fashionable... She will ask herself is this appropriate... Which she thinks may happen frequently. Initially patient said that she does not have auditory hallucinations or hear voices, but then she said sometimes and then eventually that she hears them frequently, worse over the past year and sometimes hears 2 voices talking together about her. Patient says she has never told anyone this before though she has hinted it about it with her mother. Patient indicates she has a history of trauma but does not want to talk about it. She also says she is not comfortable talking about her history of alcohol or drug use but did say she used alcohol to help cope with the voicesr. Patient is unsure what medications she has tried other than Lexapro which she said gave her a headache. Patient was starting to feel overwhelmed and wanted to and discussion. However she agreed to continue taking Zyprexa which was started at [facility] and agreed to modest increase in dose. Patient denies history of manic symptoms Past Psychiatric History: history of non-epileptic seizures Psychiatric admission at [facility] March 2022 Medication trials: Lexapro Medical Evaluation Reviewed: Yes [facility] Medical History (Updated 03/10/22 @ 16:59 by Fred Wyatt MD) Schizophrenia Family History: Deferred Social History: Lives with her mother in [place] Graduated high school Some college 1 brother and 1 sister Parents and father lives in [place]. 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 Substance History: Unclear; some recent alcohol use to subdue auditory hallucinations Trauma History: Patient indicated trauma history but did not discuss Diagnostics Vital Signs (24Hr): BMI result Body Mass Index 22.8 Labs Results: 03/07/22 17:02 03/07/22 17:02 Labs: Laboratory Results - last 48 hr 03/08/22 03/09/22 16:09 11:37 POC Glucose 61 COVID-19 (JESSICA) Negative COVID-19 Clin Com See Note Meds/Allergies Meds Home Medications Medication Instructions Recorded Confirmed Type albuterol sulfate 90 mcg/actuation 2 puff inhalation QID PRN Dyspnea 03/07/22 03/07/22 History aerosol inhaler escitalopram oxalate 10 mg tablet 10 mg PO DAILY 03/07/22 03/07/22 History hydroxyzine HCl 50 mg tablet 50 mg PO Q6H PRN Anxiety 03/07/22 03/07/22 History loratadine 10 mg tablet 10 mg PO DAILY PRN Allergy Symptoms 03/07/22 03/07/22 History lorazepam 0.5 mg tablet 0.5 mg PO Q6H PRN Anxiety 03/07/22 03/07/22 History melatonin 3 mg tablet 3 mg PO BEDTIME 03/07/22 03/07/22 History olanzapine 2.5 mg tablet 2.5 mg PO BID 03/07/22 03/07/22 History Allergies Allergies Allergy/AdvReac Type Severity Reaction Status Date / Time No Known Allergies Allergy Verified 03/07/22 13:22 Mental Status Exam Mental Status Exam Narrative: Pt is alert and oriented; behavior is cooperative, somewhat disorganized, calm; patient is not in distress; dressed in hospital attire with unkempt hair but adequate hygiene; mood is described as ok and affect constricted; eye contact minimal; Speech is with some latency due to thought blocking/internal preoccupation. When talking, normal rate, volume; slightly odd prosody; no psychomotor agitation/retardation present; thought process is trying to be goal oriented but struggling with thought blocking/internal preoccupation; Thought content is on making sense of what is going on exactly, why she is on the unit, tx; otherwise pertinent to relevant topics; no delusional or paranoid content expressed; positive for auditory hallucinations; no SI or HI; Patients insight and judgment are impaired Assessment & Plan Assessment & Plan (1) Schizophrenia: Status: Acute Code(s): F20.9 - Schizophrenia, unspecified Plan Patient is a 26-year-old female with history of psychosis, depression, anxiety recently discharged from [facility] (intending to transport her to [place]?) after refusing to take medications, eat or drink or get out of bed for 3 days. On arriving to ED, note reports Patient...indifferent, disheveled...[with] blood sugar was 53... [refused to] eat or drink...[but] relented to having an IV placed and...given D50...with a slow rate D5W drip. Patient stabilized signed a CV coming to M5. On admission, patient seems confused, with speech latency/thought blocking and trouble paying attention to conversation, saying she forgot what the question was. She explained that she can have very hard time making decisions. -patient does have insight that she has some amount of psychiatric illness, including auditory hallucinations and she wants treatment for this. Plan: CV Q 15 minute checks Increase Zyprexa to 7.5 mg q.h.s.; make at bedtime due to morning sedation (editorial writer reviewed risks/side effects) Discontinue Lexapro; patient says it causes a headache and has not been consistent with this medication Team to gather collateral Patient educated on: diagnosis, medication risk/benefits and substance abuse Informed Consent: understands and further education needed Reason for continued inpatient stay Substantial Risk for: inability to function
[2022-03-10 17:41] VITALS: BP 122/78; PULSE 69; RESP 16; TEMP 36.6; O2SAT 99
[2022-03-10] MEDS: OLANZapine 2.5 MG TABLET 7.5 MG PO (21:03)
[2022-03-10] MEDS: Melatonin 3 MG TABLET PO (21:04)
[2022-03-11 06:00] VITALS: BP 115/74; PULSE 56; RESP 14; TEMP 36.3; O2SAT 98
[2022-03-11 07:00] VITALS: BMI 23.6
[2022-03-11 09:17] LABS: Estimated Average Glucose 94 mg/dL; Hemoglobin A1c % 4.9 %
--- NOTE | 2022-03-11 10:03 | HO.PSYCHPN ---
Subjective Subjective Date of Service: 03/11/22 Reason For Visit: disorganized Interim History: Patient's father visiting on the unit; social work and publicity writer met with father and discussed patient's case to which father was receptive and supportive. Reported that patient did have a learning disability and accommodations throughout school. Said Lexapro did seem to help. Also says that throughout much of her life she has kept most of her feelings to herself so he is not surprised that she did not reveal psychotic symptoms such as AH. Production Operator later met with patient who remains without behaviors, laughing sometimes inappropriately; she seems unsure what to do, go in room or not and is indecisive about what seat to sit in. Patient does not look at publicity writer but looks off to the side. Initially see says that she feels refreshed today but on inquiry cannot elaborate. Patient internally preoccupied and has to really ask with the question was. She says that auditory hallucinations are back but again can not discuss details. Patient agrees to increase in Zyprexa. She says she was started to get confused and overwhelmed with conversation and asked if it could end Mental Status Exam Mental Status Exam Narrative: Pt is alert and oriented; behavior is cooperative, but disorganized; patient is not in distress; dressed in casual attire; unkempt hair but adequate hygiene; mood is described as refreshed and affect anxious; No eye contact; Speech is with some latency and has an interrupted flow due to thought blocking/internal preoccupation; can be normal rate; normal volume; slightly odd prosody; no psychomotor agitation/retardation present; thought process is trying to be goal oriented but struggling with internal distractions; Thought content is on making sense of what is going on exactly, why she is on the unit, tx; otherwise pertinent to relevant topics; no delusional or paranoid content expressed; +auditory hallucinations; no SI or HI; Patients insight and judgment are impaired Diagnostics Vital Signs (24Hr): Vital Signs - 24 hr 03/10/22 17:41 03/11/22 06:00 Temperature 97.8 F 97.4 F Pulse Rate 69 56 Respiratory Rate 16 14 Blood Pressure 122/78 115/74 Pulse Oximetry 99 98 Oxygen Delivery Method Room Air Room Air BMI result Body Mass Index 22.8 Labs Results: 03/07/22 17:02 09/04/22 17:02 Labs: Laboratory Results - last 48 hr 03/09/22 03/11/22 11:37 07:56 Estimat Average Glucose 94 Hemoglobin A1c % 4.9 COVID-19 (JESSICA) Negative COVID-19 Clin Com See Note Medications Medications Current Medications Acetaminophen (Acetaminophen 325 Mg Tablet) 650 mg PO Q6H PRN PRN Reason: Headache/Pain Mild Scale (1-3) Al Hydroxide/Mg Hydroxide (Magnesium Hydrox/Alum Hydrox 30 Ml Oral.Susp) 30 ml PO Q6H PRN PRN Reason: Heartburn/Nausea Albuterol Sulfate (Albuterol Sulfate 90 Mcg 8 Gm Inhaler) 2 puff INHALE QID PRN PRN Reason: Dyspnea Diphenhydramine HCl (Diphenhydramine Hcl 25 Mg Tablet) 50 mg PO Q4H PRN PRN Reason: agitation Glucose (Glucose Gel 15 Gm Gel..Gram.) 15 gm PO DAILY PRN PRN Reason: hypoglycemia Haloperidol (Haloperidol 5 Mg Tablet) 5 mg PO Q4H PRN PRN Reason: agitation Hydroxyzine HCl (Hydroxyzine Hcl 50 Mg Tablet) 50 mg PO Q6H PRN PRN Reason: Anxiety Loratadine (Loratadine 10 Mg Tablet) 10 mg PO DAILY PRN PRN Reason: Allergy Symptoms Lorazepam (Lorazepam 1 Mg Tablet) 2 mg PO Q4H PRN PRN Reason: agitation Magnesium Hydroxide (Milk Of Magnesia 30 Ml Oral.Susp) 30 ml PO DAILY PRN PRN Reason: Constipation Melatonin (Melatonin 3 Mg Tablet) 3 mg PO BEDTIME [facility] Last Admin: 03/10/22 21:04 Dose: 3 mg Nicotine Polacrilex (Nicotine Polacrilex 2 Mg Gum) 4 mg BUCCAL Q2H PRN PRN Reason: Nicotine Cravings Olanzapine (Olanzapine 2.5 Mg Tablet) 7.5 mg PO BEDTIME [facility] Last Admin: 03/10/22 21:03 Dose: 7.5 mg Trazodone HCl (Trazodone Hcl 50 Mg Tablet) 50 mg PO BEDTIME PRN PRN Reason: Insomnia Allergies Allergies Allergy/AdvReac Type Severity Reaction Status Date / Time No Known Allergies Allergy Verified 03/07/22 13:22 Assessment & Plan Assessment & Plan (1) Schizophrenia: Status: Acute Code(s): F20.9 - Schizophrenia, unspecified Plan Patient is a 26-year-old female with history of psychosis, depression, anxiety recently discharged from [facility] (intending to transport her to [place]?) after refusing to take medications, eat or drink or get out of bed for 3 days. On arriving to ED, note reports Patient...indifferent, disheveled...[with] blood sugar was 53... [refused to] eat or drink...[but] relented to having an IV placed and...given D50...with a slow rate D5W drip. Patient stabilized signed a CV coming to M5. On admission, patient seems confused, with speech latency/thought blocking and trouble paying attention to conversation, saying she forgot what the question was. She explained that she can have very hard time making decisions. -patient does have insight that she has some amount of psychiatric illness, including auditory hallucinations and she wants treatment for this. 03/11 patient remains disorganized with ; met with father who is supportive understands diagnosis Plan: CV Q 15 minute checks Increase Zyprexa to 10 mg q.h.s.; make at bedtime due to morning sedation (publicity writer reviewed risks/side effects) Discontinue Lexapro; patient says it causes a headache and has not been consistent with this medication Team to gather collateral I spent minutes with the patient and/or on the patient floor today, greater than?50% of which was spent counseling/coordinating care. Patient educated on: diagnosis and medication risk/benefits Informed Consent: understands Reason for contiued inpatient stay Substantial Risk for: inability to function and rapid decompensation
[2022-03-11 10:09] LABS: Cholesterol 148 mg/dL; HDL Cholesterol 42 mg/dL; LDL Cholesterol Calculated 100 mg/dl; Triglycerides 34 mg/dL
[2022-03-11 10:43] LABS: Reflex LDLD? No
[2022-03-12 06:00] VITALS: BP 117/76; PULSE 62; RESP 16; TEMP 36.4; O2SAT 98
--- NOTE | 2022-03-12 12:28 | HO.PSYCHPN ---
Subjective Subjective Date of Service: 03/12/22 Reason For Visit: disorganized Interim History: Patient remains with odd behaviors; walks into the room and stands there looking around, very tentative about moving in any direction. Patient says that auditory hallucinations are not so much today but that images are. She has a hard time describing them and it is unclear if the images are just in her brain or she has visual hallucinations. Patient was initially unsure of why she did not take Zyprexa last night. She said she thought she needed to not take in order to help her roommate. Later she realized that it had more to do with wondering what would happen if she did take it, symptom-bolanos. Patient also shared that it is hard for her to swallow pills and agreed to switching to Zyprexa Zydis S. Electric Container Tester discussed more patient's history. Patient continues to avoid all eye contact. She says she has always been like this as far she can remember and is uncomfortable with making eye contact. She said that she does not like to be touched by anyone which is also been true for most of her life; she does not get jokes very easily; she had 1 friend in high school but has lost contact with this person; difficult time forming relationships; No romantic relationships. She said once she thought she had autism and looked it up. Electric Container Tester agrees that she definitely has some symptoms of ASD and pt said she'd like to explore more. Mental Status Exam Mental Status Exam Narrative: Pt is alert and oriented; behavior is cooperative, but disorganized; patient is not in distress; dressed in casual attire; brushed hair but adequate hygiene; mood is described as ok and affect anxious; No eye contact; Speech is with some latency and has an interrupted flow due to thought blocking/internal preoccupation; can be normal rate; normal volume; slightly odd prosody; no psychomotor agitation/retardation present; thought process is trying to be goal oriented but struggling with internal distractions; Thought content is on making sense of what is going on exactly, why she is on the unit, tx; otherwise pertinent to relevant topics; no delusional or paranoid content expressed; +auditory hallucinations; VH?; no SI or HI; Patients insight and judgment are impaired Diagnostics Vital Signs (24Hr): Vital Signs - 24 hr 03/12/22 06:00 Temperature 97.6 F Pulse Rate 62 Respiratory Rate 16 Blood Pressure 117/76 Pulse Oximetry 98 BMI result Body Mass Index 23.6 Labs Results: 03/07/22 17:02 03/07/22 17:02 Labs: Laboratory Results - last 48 hr 03/11/22 03/11/22 07:56 07:56 Estimat Average Glucose 94 Hemoglobin A1c % 4.9 Triglycerides 34 Cholesterol 148 LDL Cholesterol, Calc 100 HDL Cholesterol 42 Medications Medications Current Medications Acetaminophen (Acetaminophen 325 Mg Tablet) 650 mg PO Q6H PRN PRN Reason: Headache/Pain Mild Scale (1-3) Al Hydroxide/Mg Hydroxide (Magnesium Hydrox/Alum Hydrox 30 Ml Oral.Susp) 30 ml PO Q6H PRN PRN Reason: Heartburn/Nausea Albuterol Sulfate (Albuterol Sulfate 90 Mcg 8 Gm Inhaler) 2 puff INHALE QID PRN PRN Reason: Dyspnea Glucose (Glucose Gel 15 Gm Gel..Gram.) 15 gm PO DAILY PRN PRN Reason: hypoglycemia Loratadine (Loratadine 10 Mg Tablet) 10 mg PO DAILY PRN PRN Reason: Allergy Symptoms Magnesium Hydroxide (Milk Of Magnesia 30 Ml Oral.Susp) 30 ml PO DAILY PRN PRN Reason: Constipation Melatonin (Melatonin 3 Mg Tablet) 3 mg PO BEDTIME [facility] Last Admin: 03/11/22 19:48 Dose: Not Given Nicotine Polacrilex (Nicotine Polacrilex 2 Mg Gum) 4 mg BUCCAL Q2H PRN PRN Reason: Nicotine Cravings Olanzapine (Olanzapine 10 Mg Tablet) 10 mg PO BEDTIME [facility] Last Admin: 03/11/22 19:49 Dose: Not Given Trazodone HCl (Trazodone Hcl 50 Mg Tablet) 50 mg PO BEDTIME PRN PRN Reason: Insomnia Allergies Allergies Allergy/AdvReac Type Severity Reaction Status Date / Time No Known Allergies Allergy Verified 03/07/22 13:22 Assessment & Plan Assessment & Plan (1) Schizophrenia: Status: Acute Code(s): F20.9 - Schizophrenia, unspecified (2) Autistic spectrum disorder: Status: Suspected Code(s): F84.0 - Autistic disorder Assessment and Plan: Suspected Plan Patient is a 26-year-old female with history of psychosis, depression, anxiety recently discharged from [facility] (intending to transport her to [place]?) after refusing to take medications, eat or drink or get out of bed for 3 days. On arriving to ED, note reports Patient...indifferent, disheveled...[with] blood sugar was 53... [refused to] eat or drink...[but] relented to having an IV placed and...given D50...with a slow rate D5W drip. Patient stabilized signed a CV coming to M5. On admission, patient seems confused, with speech latency/thought blocking and trouble paying attention to conversation, saying she forgot what the question was. She explained that she can have very hard time making decisions. -patient does have insight that she has some amount of psychiatric illness, including auditory hallucinations and she wants treatment for this. 03/11 patient remains disorganized with ; met with father who is supportive understands diagnosis 03/12 still disorganized; discussed history and patient likely meets criteria for ASD; switched medications to Zydis since patient has trouble with pills avoids all eye contact; true for most of her life; says it makes her uncomfortable; does not like to be touched by anyone; does not get jokes very easily; only 1 friend in high school; difficult time forming relationships; No romantic relationships. She said once she thought she had autism and looked it up; learnind disability in , had language tutor, special classes. Plan: CV Q 15 minute checks SWITCH to Zydis 10 mg q.h.s.; make at bedtime due to morning sedation (editorial writer reviewed risks/side effects) Discontinue Lexapro; patient says it causes a headache and has not been consistent with this medication Team to gather collateral I spent minutes with the patient and/or on the patient floor today, greater than?50% of which was spent counseling/coordinating care. Patient educated on: diagnosis, medication risk/benefits and therapeutic strategies Informed Consent: understands Reason for contiued inpatient stay Substantial Risk for: inability to function
[2022-03-12 17:04] VITALS: BP 130/99; PULSE 81; TEMP 37; O2SAT 98
[2022-03-13] MEDS: Escitalopram Oxalate 5 MG TABLET PO (10:26)
[2022-03-13] MEDS: OLANZapine ODT 10 MG TAB.RAPDIS TRANSLINGU ×2 (10:26→20:57)
--- NOTE | 2022-03-13 14:10 | HO.PSYCHPN ---
Subjective Subjective Date of Service: 03/13/22 Reason For Visit: disorganized Subjective Notes: Conditional Voluntary Interim History: Met with patient. Discussed with Nursing. Review chart. Noted pathway to hospital i.e. [facility] [place] to medical care to [facility]. Father reports Lexapro in the past was helpful. Noted rationale for discontinuing same. Patient reports she will take Lexapro 5 mg rather than 10 mg to see if she experiences headaches. Encouraged to take olanzapine at bedtime to avoid daytime doses. Reports still hallucinating. Medication Compliance: Yes Side effects from medications: No Attending Groups: Intermittent Review of Systems Acute medical concerns: No Review of Systems Review of Systems Unremarkable Mental Status Exam Mental Status Exam Narrative: Fairly presented. Short answers. Reported feeling tired. Restricted affect. No evidence of SI or HI. Did endorse hallucinations, non command. Insight and judgment fair Diagnostics Vital Signs (24Hr): Vital Signs - 24 hr 03/12/22 17:04 Temperature 98.6 F Pulse Rate 81 Blood Pressure 130/99 H Pulse Oximetry 98 Oxygen Delivery Method Room Air BMI result Body Mass Index 23.6 Labs Results: 03/07/22 17:02 03/07/22 17:02 Medications Medications Current Medications Acetaminophen (Acetaminophen 325 Mg Tablet) 650 mg PO Q6H PRN PRN Reason: Headache/Pain Mild Scale (1-3) Al Hydroxide/Mg Hydroxide (Magnesium Hydrox/Alum Hydrox 30 Ml Oral.Susp) 30 ml PO Q6H PRN PRN Reason: Heartburn/Nausea Albuterol Sulfate (Albuterol Sulfate 90 Mcg 8 Gm Inhaler) 2 puff INHALE QID PRN PRN Reason: Dyspnea Escitalopram Oxalate (Escitalopram Oxalate 5 Mg Tablet) 5 mg PO DAILY [facility] Last Admin: 03/13/22 10:26 Dose: 5 mg Glucose (Glucose Gel 15 Gm Gel..Gram.) 15 gm PO DAILY PRN PRN Reason: hypoglycemia Loratadine (Loratadine 10 Mg Tablet) 10 mg PO DAILY PRN PRN Reason: Allergy Symptoms Magnesium Hydroxide (Milk Of Magnesia 30 Ml Oral.Susp) 30 ml PO DAILY PRN PRN Reason: Constipation Melatonin (Melatonin 3 Mg Tablet) 3 mg PO BEDTIME [facility] Last Admin: 03/12/22 22:37 Dose: Not Given Nicotine Polacrilex (Nicotine Polacrilex 2 Mg Gum) 4 mg BUCCAL Q2H PRN PRN Reason: Nicotine Cravings Olanzapine (Olanzapine Odt 10 Mg Tab.Rapdis) 10 mg TRANSLINGU BEDTIME [facility] Last Admin: 03/12/22 22:37 Dose: Not Given Trazodone HCl (Trazodone Hcl 50 Mg Tablet) 50 mg PO BEDTIME PRN PRN Reason: Insomnia Allergies Allergies Allergy/AdvReac Type Severity Reaction Status Date / Time No Known Allergies Allergy Verified 03/07/22 13:22 Assessment & Plan Assessment & Plan (1) Schizophrenia: Status: Acute Code(s): F20.9 - Schizophrenia, unspecified (2) Autistic spectrum disorder: Status: Suspected Code(s): F84.0 - Autistic disorder Assessment and Plan: Suspected Plan Patient is a 26-year-old female with history of psychosis, depression, anxiety recently discharged from [facility] (intending to transport her to [place]?) after refusing to take medications, eat or drink or get out of bed for 3 days. On arriving to ED, note reports Patient...indifferent, disheveled...[with] blood sugar was 53... [refused to] eat or drink...[but] relented to having an IV placed and...given D50...with a slow rate D5W drip. Patient stabilized signed a CV coming to M5. On admission, patient seems confused, with speech latency/thought blocking and trouble paying attention to conversation, saying she forgot what the question was. She explained that she can have very hard time making decisions. -patient does have insight that she has some amount of psychiatric illness, including auditory hallucinations and she wants treatment for this. 03/11 patient remains disorganized with ; met with father who is supportive understands diagnosis 03/12 still disorganized; discussed history and patient likely meets criteria for ASD; switched medications to Zydis since patient has trouble with pills avoids all eye contact; true for most of her life; says it makes her uncomfortable; does not like to be touched by anyone; does not get jokes very easily; only 1 friend in high school; difficult time forming relationships; No romantic relationships. She said once she thought she had autism and looked it up; learnind disability in , had after school tutor, special classes. Plan: CV Q 15 minute checks SWITCH to Zydis 10 mg q.h.s.; make at bedtime due to morning sedation (telegraphic typewriter repairer reviewed risks/side effects) Discontinue Lexapro; patient says it causes a headache and has not been consistent with this medication Team to gather collateral 03/13/2022: Continue olanzapine 10 mg. Family reports Lexapro was helpful in the past and patient open to retrying same therefore restarted Lexapro but a lower dose of 5 mg and review regarding tolerability. I spent minutes with the patient and/or on the patient floor today, greater than?50% of which was spent counseling/coordinating care. Reason for contiued inpatient stay Substantial Risk for: inability to function
[2022-03-13 18:00] VITALS: BP 122/69; PULSE 82; RESP 16; TEMP 36.4; O2SAT 99
[2022-03-13] MEDS: Melatonin 3 MG TABLET PO (20:56)
[2022-03-14 06:00] VITALS: BP 122/69; PULSE 76; RESP 18; TEMP 36.3; O2SAT 98
[2022-03-14] MEDS: Escitalopram Oxalate 5 MG TABLET PO (08:33)
--- NOTE | 2022-03-14 11:33 | HO.PSYCHPN ---
Subjective Subjective Date of Service: 03/14/22 Reason For Visit: disorganized Interim History: Met with patient. Discussed with Nursing. Patient internally preoccupied. Guarded. Limited interaction with tech writer. Denied depression. Denied side effects from Lexapro which was started yesterday at 5 mg. Reports still hallucinating but reluctant to elaborate. Medication Compliance: Yes Side effects from medications: No Attending Groups: No Review of Systems Acute medical concerns: No Review of Systems Review of Systems Unremarkable Mental Status Exam Mental Status Exam Narrative: Fairly presented. Short answers. Restricted affect. No evidence of SI or HI. Did endorse hallucinations, non command. Insight and judgment fair Diagnostics Vital Signs (24Hr): Vital Signs - 24 hr 03/13/22 18:00 03/14/22 06:00 Temperature 97.6 F 97.3 F Pulse Rate 82 76 Respiratory Rate 16 18 Blood Pressure 122/69 122/69 Pulse Oximetry 99 98 Oxygen Delivery Method Room Air Room Air BMI result Body Mass Index 23.6 Labs Results: 03/07/22 17:02 03/07/22 17:02 Medications Medications Current Medications Acetaminophen (Acetaminophen 325 Mg Tablet) 650 mg PO Q6H PRN PRN Reason: Headache/Pain Mild Scale (1-3) Al Hydroxide/Mg Hydroxide (Magnesium Hydrox/Alum Hydrox 30 Ml Oral.Susp) 30 ml PO Q6H PRN PRN Reason: Heartburn/Nausea Albuterol Sulfate (Albuterol Sulfate 90 Mcg 8 Gm Inhaler) 2 puff INHALE QID PRN PRN Reason: Dyspnea Escitalopram Oxalate (Escitalopram Oxalate 5 Mg Tablet) 5 mg PO DAILY [facility] Last Admin: 03/14/22 08:33 Dose: 5 mg Glucose (Glucose Gel 15 Gm Gel..Gram.) 15 gm PO DAILY PRN PRN Reason: hypoglycemia Loratadine (Loratadine 10 Mg Tablet) 10 mg PO DAILY PRN PRN Reason: Allergy Symptoms Magnesium Hydroxide (Milk Of Magnesia 30 Ml Oral.Susp) 30 ml PO DAILY PRN PRN Reason: Constipation Melatonin (Melatonin 3 Mg Tablet) 3 mg PO BEDTIME [facility] Last Admin: 03/13/22 20:56 Dose: 3 mg Nicotine Polacrilex (Nicotine Polacrilex 2 Mg Gum) 4 mg BUCCAL Q2H PRN PRN Reason: Nicotine Cravings Olanzapine (Olanzapine Odt 10 Mg Tab.Rapdis) 10 mg TRANSLINGU BEDTIME [facility] Last Admin: 03/13/22 20:57 Dose: 10 mg Trazodone HCl (Trazodone Hcl 50 Mg Tablet) 50 mg PO BEDTIME PRN PRN Reason: Insomnia Allergies Allergies Allergy/AdvReac Type Severity Reaction Status Date / Time No Known Allergies Allergy Verified 03/07/22 13:22 Assessment & Plan Assessment & Plan (1) Schizophrenia: Status: Acute Code(s): F20.9 - Schizophrenia, unspecified (2) Autistic spectrum disorder: Status: Suspected Code(s): F84.0 - Autistic disorder Assessment and Plan: Suspected Plan Patient is a 26-year-old female with history of psychosis, depression, anxiety recently discharged from [facility] (intending to transport her to [place]?) after refusing to take medications, eat or drink or get out of bed for 3 days. On arriving to ED, note reports Patient...indifferent, disheveled...[with] blood sugar was 53... [refused to] eat or drink...[but] relented to having an IV placed and...given D50...with a slow rate D5W drip. Patient stabilized signed a CV coming to M5. On admission, patient seems confused, with speech latency/thought blocking and trouble paying attention to conversation, saying she forgot what the question was. She explained that she can have very hard time making decisions. -patient does have insight that she has some amount of psychiatric illness, including auditory hallucinations and she wants treatment for this. 03/11 patient remains disorganized with ; met with father who is supportive understands diagnosis 03/12 still disorganized; discussed history and patient likely meets criteria for ASD; switched medications to Zydis since patient has trouble with pills avoids all eye contact; true for most of her life; says it makes her uncomfortable; does not like to be touched by anyone; does not get jokes very easily; only 1 friend in high school; difficult time forming relationships; No romantic relationships. She said once she thought she had autism and looked it up; learnind disability in , had ward assistant, special classes. Plan: CV Q 15 minute checks SWITCH to Zydis 10 mg q.h.s.; make at bedtime due to morning sedation (tech writer reviewed risks/side effects) Discontinue Lexapro; patient says it causes a headache and has not been consistent with this medication Team to gather collateral 03/13/2022: Continue olanzapine 10 mg. Family reports Lexapro was helpful in the past and patient open to retrying same therefore restarted Lexapro but a lower dose of 5 mg and review regarding tolerability. 03/14/2022: No changes to current regimen I spent minutes with the patient and/or on the patient floor today, greater than?50% of which was spent counseling/coordinating care. Reason for contiued inpatient stay Substantial Risk for: inability to function
[2022-03-14] MEDS: Acetaminophen 325 MG TABLET 650 MG PO (16:00)
[2022-03-14 18:00] VITALS: BP 114/78; PULSE 68; RESP 18; TEMP 37.1; O2SAT 98
[2022-03-14] MEDS: OLANZapine ODT 10 MG TAB.RAPDIS TRANSLINGU (20:19)
[2022-03-14] MEDS: Melatonin 3 MG TABLET PO (20:19)
[2022-03-15 06:00] VITALS: BP 119/72; PULSE 78; RESP 18; TEMP 36.6; O2SAT 98
[2022-03-15] MEDS: Escitalopram Oxalate 5 MG TABLET PO (07:55)
--- NOTE | 2022-03-15 09:49 | P.PNPSI_ITS ---
Subjective Subjective Date of Service: 03/15/22 Reason For Visit: disorganized Interim History: pt reports continued AH that is bothersome; she has a difficult time explaining experience. Still some confusion but a little less. Patients father, Gab, present; discussed ASD, which he says never came up w/ past therapist before but will discuss with Giovana, patients mother. He's not sure about her hx of eye contact, but does agree she mostly has not been fond of touch. Pt agrees to in crease Zyprexa for continued AH/VH. Mental Status Exam Mental Status Exam Narrative: Pt is alert and oriented; behavior is cooperative, more organized; patient is not in distress; dressed in casual attire; brushed hair, adequate hygiene; mood is described as ok and affect anxious; No eye contact; Speech is with some latency but less and able to speak longer without getting confused; still some thought blocking/internal preoccupation; can be normal rate; normal volume; slightly odd prosody; no psychomotor agitation/retardation present; thought process is goal oriented and more linear; still struggling with internal distractions; Thought content is on making sense of what is going on, why she's having these struggles; on tx; otherwise pertinent to relevant topics; no delusional or paranoid content expressed; +auditory hallucinations; some VH; no SI or HI; Patients insight and judgment are impaired, but seem improved. Diagnostics Vital Signs (24Hr): Vital Signs - 24 hr 03/14/22 18:00 03/15/22 06:00 Temperature 98.8 F 97.9 F Pulse Rate 68 78 Respiratory Rate 18 18 Blood Pressure 114/78 119/72 Pulse Oximetry 98 98 Oxygen Delivery Method Room Air BMI result Body Mass Index 23.6 Labs Results: 03/07/22 17:02 03/07/22 17:02 Medications Medications Current Medications Acetaminophen (Acetaminophen 325 Mg Tablet) 650 mg PO Q6H PRN PRN Reason: Headache/Pain Mild Scale (1-3) Last Admin: 03/14/22 16:00 Dose: 650 mg Al Hydroxide/Mg Hydroxide (Magnesium Hydrox/Alum Hydrox 30 Ml Oral.Susp) 30 ml PO Q6H PRN PRN Reason: Heartburn/Nausea Albuterol Sulfate (Albuterol Sulfate 90 Mcg 8 Gm Inhaler) 2 puff INHALE QID PRN PRN Reason: Dyspnea Escitalopram Oxalate (Escitalopram Oxalate 5 Mg Tablet) 5 mg PO DAILY [facility] Last Admin: 03/15/22 07:55 Dose: 5 mg Glucose (Glucose Gel 15 Gm Gel..Gram.) 15 gm PO DAILY PRN PRN Reason: hypoglycemia Loratadine (Loratadine 10 Mg Tablet) 10 mg PO DAILY PRN PRN Reason: Allergy Symptoms Magnesium Hydroxide (Milk Of Magnesia 30 Ml Oral.Susp) 30 ml PO DAILY PRN PRN Reason: Constipation Melatonin (Melatonin 3 Mg Tablet) 3 mg PO BEDTIME [facility] Last Admin: 03/14/22 20:19 Dose: 3 mg Nicotine Polacrilex (Nicotine Polacrilex 2 Mg Gum) 4 mg BUCCAL Q2H PRN PRN Reason: Nicotine Cravings Olanzapine (Olanzapine Odt 10 Mg Tab.Rapdis) 10 mg TRANSLINGU BEDTIME [facility] Last Admin: 03/14/22 20:19 Dose: 10 mg Trazodone HCl (Trazodone Hcl 50 Mg Tablet) 50 mg PO BEDTIME PRN PRN Reason: Insomnia Allergies Allergies Allergy/AdvReac Type Severity Reaction Status Date / Time No Known Allergies Allergy Verified 03/07/22 13:22 Assessment & Plan Assessment & Plan (1) Schizophrenia: Status: Acute Code(s): F20.9 - Schizophrenia, unspecified (2) Autistic spectrum disorder: Status: Suspected Code(s): F84.0 - Autistic disorder Assessment and Plan: Suspected Plan Patient is a 26-year-old female with history of psychosis, depression, anxiety recently discharged from [facility] (intending to transport her to [place]?) after refusing to take medications, eat or drink or get out of bed for 3 days. On arriving to ED, note reports Patient...indifferent, disheveled...[with] blood sugar was 53... [refused to] eat or drink...[but] relented to having an IV placed and...given D50...with a slow rate D5W drip. Patient stabilized signed a CV coming to M5. On admission, patient seems confused, with speech latency/thought blocking and trouble paying attention to conversation, saying she forgot what the question was. She explained that she can have very hard time making decisions. -patient does have insight that she has some amount of psychiatric illness, including auditory hallucinations and she wants treatment for this. 03/11 patient remains disorganized with AH; met with father who is supportive understands diagnosis 03/12 still disorganized; discussed history and patient likely meets criteria for ASD; switched medications to Zydis since patient has trouble with pills avoids all eye contact; true for most of her life; says it makes her uncomfortable; does not like to be touched by anyone; does not get jokes very easily; only 1 friend in high school; difficult time forming relationships; No romantic relationships. She said once she thought she had autism and looked it up; learnind disability in HS, had math tutor, special classes. 03/13/2022: Continue olanzapine 10 mg. ?Family reports Lexapro was helpful in the past and patient open to retrying same therefore 03/15 more organized, still AH; parents to consider possbile ASD Plan: CV Q 15 minute checks INCREASED to Zydis 15mg q.h.s.; for continued AH; (fiction writer reviewed risks/side effects) Lexapro was restarted at 5mg; no headaches (had headaches at 10mg; not sure how adherent pt was with this med) Team to gather collateral 03/13/2022: Continue olanzapine 10 mg. Family reports Lexapro was helpful in the past and patient open to retrying same therefore restarted Lexapro but a lower dose of 5 mg and review regarding tolerability. 03/14/2022: No changes to current regimen I spent minutes with the patient and/or on the patient floor today, greater than?50% of which was spent counseling/coordinating care. Patient educated on: diagnosis and medication risk/benefits Informed Consent: understands and further education needed Reason for contiued inpatient stay Substantial Risk for: inability to function
[2022-03-15] MEDS: OLANZapine ODT 10 MG TAB.RAPDIS 2.5 MG TRANSLINGU (13:00)
[2022-03-15 16:05] VITALS: BP 165/89; PULSE 91; TEMP 36.2; O2SAT 100
[2022-03-15] MEDS: cloNIDine HCL 0.1 MG TABLET PO (16:08)
[2022-03-15] MEDS: OLANZapine ODT 10 MG TAB.RAPDIS 15 MG TRANSLINGU (21:13)
[2022-03-16 06:00] VITALS: BP 114/68; PULSE 82; RESP 18; TEMP 36.4; O2SAT 98
[2022-03-16] MEDS: Escitalopram Oxalate 5 MG TABLET PO (08:26)
[2022-03-16] MEDS: cloNIDine HCL 0.1 MG TABLET PO (14:38)
[2022-03-16 14:39] VITALS: BP 125/79
[2022-03-16 18:11] VITALS: BP 116/72; PULSE 82; TEMP 36.8; O2SAT 95
--- NOTE | 2022-03-16 19:11 | P.PNPSI_ITS ---
Subjective Subjective Date of Service: 03/16/22 Reason For Visit: disorganized Interim History: pt says she's doing better, feels more clear mindied; ironically she says this is making AH more pronounced. Pt briefly looks health underwriter in eye and says she's trying to do this more, but still remains very uncomfortable with it and does not like it. She does not really know if she's avoided eye-contact for most of her life. Mental Status Exam Mental Status Exam Narrative: Pt is alert and oriented; behavior is cooperative, more organized; patient is not in distress; dressed in casual attire; brushed hair, adequate hygiene; mood is described as ok and affect anxious; No eye contact; Speech is with some latency but less and able to speak longer without getting confused; still some thought blocking/internal preoccupation; can be normal rate; normal volume; slightly odd prosody; no psychomotor agitation/retardation present; thought process is goal oriented and more linear; still struggling with internal distractions; Thought content is on making sense of what is going on, why she's having these struggles; on tx; otherwise pertinent to relevant topics; no delusional or paranoid content expressed; +auditory hallucinations; some VH; no SI or HI; Patients insight and judgment are impaired, but seem improved. Diagnostics Vital Signs (24Hr): Vital Signs - 24 hr 03/16/22 06:00 03/16/22 14:39 03/16/22 18:11 Temperature 97.6 F 98.2 F Pulse Rate 82 82 Respiratory Rate 18 Blood Pressure 114/68 125/79 116/72 Pulse Oximetry 98 95 Oxygen Delivery Method Room Air BMI result Body Mass Index 23.6 Labs Results: 03/07/22 17:02 03/07/22 17:02 Medications Medications Current Medications Acetaminophen (Acetaminophen 325 Mg Tablet) 650 mg PO Q6H PRN PRN Reason: Headache/Pain Mild Scale (1-3) Last Admin: 03/14/22 16:00 Dose: 650 mg Al Hydroxide/Mg Hydroxide (Magnesium Hydrox/Alum Hydrox 30 Ml Oral.Susp) 30 ml PO Q6H PRN PRN Reason: Heartburn/Nausea Albuterol Sulfate (Albuterol Sulfate 90 Mcg 8 Gm Inhaler) 2 puff INHALE QID PRN PRN Reason: Dyspnea Clonidine HCl (Clonidine Hcl 0.1 Mg Tablet) 0.1 mg PO Q4H PRN; Protocol PRN Reason: Anxiety (try first) Last Admin: 03/16/22 14:38 Dose: 0.1 mg Escitalopram Oxalate (Escitalopram Oxalate 5 Mg Tablet) 5 mg PO DAILY [facility] Last Admin: 03/16/22 08:26 Dose: 5 mg Glucose (Glucose Gel 15 Gm Gel..Gram.) 15 gm PO DAILY PRN PRN Reason: hypoglycemia Loratadine (Loratadine 10 Mg Tablet) 10 mg PO DAILY PRN PRN Reason: Allergy Symptoms Magnesium Hydroxide (Milk Of Magnesia 30 Ml Oral.Susp) 30 ml PO DAILY PRN PRN Reason: Constipation Melatonin (Melatonin 3 Mg Tablet) 3 mg PO BEDTIME PRN PRN Reason: insomnia Nicotine Polacrilex (Nicotine Polacrilex 2 Mg Gum) 4 mg BUCCAL Q2H PRN PRN Reason: Nicotine Cravings Olanzapine (Olanzapine Odt 10 Mg Tab.Rapdis) 15 mg TRANSLINGU BEDTIME [facility] Last Admin: 03/15/22 21:13 Dose: 15 mg Allergies Allergies Allergy/AdvReac Type Severity Reaction Status Date / Time No Known Allergies Allergy Verified 03/07/22 13:22 Assessment & Plan Assessment & Plan (1) Schizophrenia: Status: Acute Code(s): F20.9 - Schizophrenia, unspecified (2) Autistic spectrum disorder: Status: Suspected Code(s): F84.0 - Autistic disorder Assessment and Plan: Suspected Plan Patient is a 26-year-old female with history of psychosis, depression, anxiety recently discharged from [facility] (intending to transport her to [place]?) after refusing to take medications, eat or drink or get out of bed for 3 days. On arriving to ED, note reports Patient...indifferent, disheveled...[with] blood sugar was 53... [refused to] eat or drink...[but] relented to having an IV placed and...given D50...with a slow rate D5W drip. Patient stabilized signed a CV coming to M5. On admission, patient seems confused, with speech latency/thought blocking and trouble paying attention to conversation, saying sh e forgot what the question was. She explained that she can have very hard time making decisions. -patient does have insight that she has some amount of psychiatric illness, including auditory hallucinations and she wants treatment for this. 03/11 patient remains disorganized with AH; met with father who is supportive understands diagnosis 03/12 still disorganized; discussed history and patient likely meets criteria for ASD; switched medications to Zydis since patient has trouble with pills avoids all eye contact; true for most of her life; says it makes her uncomfortable; does not like to be touched by anyone; does not get jokes very easily; only 1 friend in high school; difficult time forming relationships; No romantic relationships. She said once she thought she had autism and looked it up; learning disability in HS, had english language learner tutor, special classes. 03/13/2022: Continue olanzapine 10 mg. ?Family reports Lexapro was helpful in the past and patient open to retrying same therefore 03/13/2022: Continue olanzapine 10 mg. ?Family reports Lexapro was helpful in the past and patient open to retrying same therefore restarted Lexapro but a lower dose of 5 mg and review regarding tolerability. 03/15 more organized, still AH; parents to consider possible ASD Plan: CV Q 15 minute checks Zydis 15mg q.h.s.; for continued AH; (health underwriter reviewed risks/side effects) Lexapro was restarted at 5mg; no headaches (had headaches at 10mg; not sure how adherent pt was with this med) Team to gather collateral 03/13/2022: Continue olanzapine 10 mg. Family reports Lexapro was helpful in the past and patient open to retrying same therefore restarted Lexapro but a lower dose of 5 mg and review regarding tolerability. 03/14/2022: No changes to current regimen I spent minutes with the patient and/or on the patient floor today, greater than?50% of which was spent counseling/coordinating care. Patient educated on: diagnosis Informed Consent: understands and further education needed Reason for contiued inpatient stay Substantial Risk for: inability to function
[2022-03-16] MEDS: OLANZapine ODT 10 MG TAB.RAPDIS 15 MG TRANSLINGU (19:30)
[2022-03-17 06:00] VITALS: RESP 18
[2022-03-17] MEDS: Escitalopram Oxalate 5 MG TABLET PO (08:05)
[2022-03-17] MEDS: cloNIDine HCL 0.1 MG TABLET PO ×2 (10:22→14:12)
[2022-03-17 14:10] VITALS: BP 113/60; PULSE 69
--- NOTE | 2022-03-17 17:02 | P.PNPSI_ITS ---
Subjective Subjective Date of Service: 03/17/22 Reason For Visit: disorganized Interim History: With patient and her mother. Patient says she is definitely feeling better and is less confused, able to think more clearly. She and her mother both think she is close to a 7/10, 10 being her regular self. Patient says she's not so sure she was actually hearing voices, but maybe it was just her thoughts. Digital Media Buyer Reviewed with patient said on admission, including that she has been hearing v oices for 3 years and that it has recently gotten worse, she has her to voices talking about her at the same time. Patient remains unsure about what her experience was. She denies hearing them now. Regarding her reported visual hallucinations she says she never really actually Marisel other things but thinks it was more just memories of her past that she was thinking about. Mother gave more history and reports that this past summer after she had been off Lexapro for a couple months, patient seemed to be more depressed, isolating herself in her room most of the day which was atypical for. And then both mother and patient agree that in February patient had what sounds like a manic episode that resulted in her admission to [facility] and then [place], where patient hardly slept for 3 days, was irritable, impulsive, with racing thoughts, high energy and was doing behaviors that were atypical for her such as with the family was at the beach, patient said she was going to go get some food and come back but instead she just drove home without telling anybody, spent the night in an came back the next day. Mother found her drinking and smoking cigarettes, something patient has not done in a long time. Her outpatient psychiatrist thought she was having a psychotic episode and she was admitted to [facility] where she was not eating, not drinking and confused and not communicating. Digital Media Buyer discussed possible diagnosis of schizoaffective or bipolar disorder. Also discussed symptoms of autism and the concept of a spectrum; patient's mother does not think that she has been avoiding eye contact for whole life or avoiding physical touch until more recently; patient herself is unsure. There is a family history of of maternal uncle who is intellectually disabled and patient's niece who has autism. Patient would like to go home and her mother thinks that she is ready to continue treatment as an outpatient. She agrees to continue taking the Zyprexa which has helped clear of confusion and diminished her experience of having voices. Patient has continued to deny any SI or HI. Mental Status Exam Mental Status Exam Narrative: Pt is alert and oriented; behavior is cooperative, mostly organized; patient is not in distress; dressed in casual attire; brushed hair, adequate hygiene; mood is described as good and affect anxious but overall more calm; very minimal eye contact; Speech is with some latency but less and able to speak longer without getting confused; still some thought blocking/internal preoccupation; but otherwise normal rate; normal volume; no psychomotor agitation/retardation present; thought process is goal oriented and more linear, sometimes tangential but minimally; Thought content is on making sense of her experiences, treatment and discharge; otherwise pertinent to relevant topics; no delusional or paranoid content expressed; Denies AVH; no SI or HI; Patients insight and judgment are impaired, but much improved and adequate. Diagnostics Vital Signs (24Hr): Vital Signs - 24 hr 03/16/22 18:11 03/17/22 06:00 03/17/22 14:10 Temperature 98.2 F Pulse Rate 82 69 Respiratory Rate 18 Blood Pressure 116/72 113/60 Pulse Oximetry 95 Oxygen Delivery Method Room Air BMI result Body Mass Index 23.6 Labs Results: 03/07/22 17:02 03/07/22 17:02 Medications Medications Current Medications Acetaminophen (Acetaminophen 325 Mg Tablet) 650 mg PO Q6H PRN PRN Reason: Headache/Pain Mild Scale (1-3) Last Admin: 03/14/22 16:00 Dose: 650 mg Al Hydroxide/Mg Hydroxide (Magnesium Hydrox/Alum Hydrox 30 Ml Oral.Susp) 30 ml PO Q6H PRN PRN Reason: Heartburn/Nausea Albuterol Sulfate (Albuterol Sulfate 90 Mcg 8 Gm Inhaler) 2 puff INHALE QID PRN PRN Reason: Dyspnea Clonidine HCl (Clonidine Hcl 0.1 Mg Tablet) 0.1 mg PO Q4H PRN; Protocol PRN Reason: Anxiety (try first) Last Admin: 03/17/22 14:12 Dose: 0.1 mg Escitalopram Oxalate (Escitalopram Oxalate 5 Mg Tablet) 5 mg PO DAILY [facility] Last Admin: 03/17/22 08:05 Dose: 5 mg Glucose (Glucose Gel 15 Gm Gel..Gram.) 15 gm PO DAILY PRN PRN Reason: hypoglycemia Loratadine (Loratadine 10 Mg Tablet) 10 mg PO DAILY PRN PRN Reason: Allergy Symptoms Magnesium Hydroxide (Milk Of Magnesia 30 Ml Oral.Susp) 30 ml PO DAILY PRN PRN Reason: Constipation Melatonin (Melatonin 3 Mg Tablet) 3 mg PO BEDTIME PRN PRN Reason: insomnia Nicotine Polacrilex (Nicotine Polacrilex 2 Mg Gum) 4 mg BUCCAL Q2H PRN PRN Reason: Nicotine Cravings Olanzapine (Olanzapine 7.5 Mg Tablet) 15 mg PO BEDTIME [facility] Allergies Allergies Allergy/AdvReac Type Severity Reaction Status Date / Time No Known Allergies Allergy Verified 03/07/22 13:22 Assessment & Plan Assessment & Plan (1) Schizoaffective disorder, bipolar type: Status: Acute Code(s): F25.0 - Schizoaffective disorder, bipolar type (2) Autistic spectrum disorder: Status: Suspected Code(s): F84.0 - Autistic disorder Assessment and Plan: Suspected Plan Patient is a 26-year-old female with history of psychosis, depression, anxiety recently discharged from [facility] (intending to transport her to [place]?) after refusing to take medications, eat or drink or get out of bed for 3 days. On arriving to ED, note reports Patient...indifferent, disheveled...[with] blood sugar was 53... [refused to] eat or drink...[but] relented to having an IV placed and...given D50...with a slow rate D5W drip. Patient stabilized signed a CV coming to M5. On admission, patient seems confused, with speech latency/thought blocking and trouble paying attention to conversation, saying she forgot what the question was. She explained that she can have very hard time making decisions. -patient does have insight that she has some amount of psychiatric illness, including auditory hallucinations and she wants treatment for this. 03/11 patient remains disorganized with ; met with father who is supportive understands diagnosis 03/12 still disorganized; discussed history and patient likely meets criteria for ASD; switched medications to Zydis since patient has trouble with pills avoids all eye contact; true for most of her life; says it makes her uncomfortable; does not like to be touched by anyone; does not get jokes very easily; only 1 friend in high school; difficult time forming relationships; No romantic relationships. She said once she thought she had autism and looked it up; learning disability in HS, had biology tutor, special classes. 03/13/2022: Continue olanzapine 10 mg. ?Family reports Lexapro was helpful in the past and patient open to retrying same therefore restarted Lexapro but a lower dose of 5 mg and review regarding tolerability. 03/14/2022: No changes to current regimen 03/15 more organized, still AH; parents to consider possible ASD 03/17 patient continues to be much more organized; denies AVH. Mother present today who thinks her daughter is about a 10 being patient's regular self; patient agrees. Patient is asking for discharge and her mother thinks that she is ready to go home. Patient says she will continue taking medications and is looking forward to outpatient treatment, asking again about the [facility]. Mother shared some additional information and it appears that patient had a manic episode prior to her admission to [facility] this month. Patient is now back tracking on her early reporting of having voices; initially and consistently through this admission, she said she was having them for 3 years but did not really tell anybody, feeling a afraid to and is now revealing for the 1st time; she also said she heard 2 voices talking to each other about her. Today however she says she is not sure they really were voices but perhaps just thoughts. Although patient has significantly improved and her organization, she remains confused and unsure about quite a number of things relating to her experiences in her past. At this point it seems to manual writer that patient may either be minimizing her experience of AVH or remains to cloudy to articulate. Given her reporting, presentation and recent history manual writer diagnoses her with Schizoaffective disorder she also reference is history of trauma and says she has PTSD though does not want to talk about it. Patient's parents doubt she has autism and say that she used to make eye contact and not avoid physical touch; discussed the concept of autistic spectrum. Patient's family gave manual writer a written history which shows significant struggles with learning, needing in IEP throughout high school and an additional special biology tutor. At this time manual writer will make autism a provisional diagnosis. Digital Media Buyer concludes that it will take more time for diagnoses to cry stallize. Of note patient said she would like to switch back to Zyprexa pill form. Patient is very fortunate to have loving, supportive parents who although are , are both devoted to their daughter and have become adept at co- parenting. Patient is is eating and drinking without trouble; she is with improved insight and judgment, agreeing to continue taking medications. Patient will be returning home to live with her mother. Patient is not in imminent risk for harm to self or others and her request for discharge honored. Plan: CV Q 15 minute checks Zyprexa 15mg q.h.s.; for continued AH; (manual writer reviewed risks/side effects) Lexapro was restarted at 5mg; no headaches (had headaches at 10mg; not sure how adherent pt was with this med) I spent minutes with the patient and/or on the patient floor today, greater than?50% of which was spent counseling/coordinating care. Patient educated on: diagnosis, medication risk/benefits and therapeutic strategies Informed Consent: understands and further education needed Reason for contiued inpatient stay Substantial Risk for: stable for discharge
[2022-03-17 17:55] VITALS: BP 118/78; PULSE 96; RESP 16; TEMP 36.6; O2SAT 98
[2022-03-17] MEDS: OLANZapine 7.5 MG TABLET 15 MG PO (19:46)
[2022-03-18] MEDS: Escitalopram Oxalate 5 MG TABLET PO (08:11)
[2022-03-18 08:43] VITALS: BP 115/65; PULSE 66; TEMP 36.8
--- NOTE | 2022-03-18 09:34 | PM.PSYDC ---
DS: Providers Provider Date of Service: 03/18/22 Date of admission: 03/09/22 15:29 Date of discharge: 03/18/22 Primary care physician: Unknown Physician Attending physician on admission: Fred Wyatt Attending physician on discharge: Fred Wyatt DS: Diagnosis Discharge Diagnosis (1) Schizoaffective disorder, bipolar type: Status: Acute (2) Autistic spectrum disorder: Status: Suspected DS: Medications Discharge Medications Home Medications: Home Medications Medication Instructions Recorded Confirmed hydroxyzine HCl 50 mg tablet 50 mg PO Q6H PRN Anxiety 03/07/22 03/07/22 melatonin 3 mg tablet 3 mg PO BEDTIME 03/07/22 03/07/22 Previous Rx's Medication Instructions Recorded albuterol sulfate 90 mcg/actuation 2 puff inhalation QID PRN Dyspnea 03/18/22 aerosol inhaler 30 days #6.7 grams clonidine HCl 0.1 mg tablet 0.1 mg PO TID PRN Anxiety (try 03/18/22 first) 30 days #90 tabs escitalopram oxalate 5 mg tablet 5 mg PO DAILY 30 days #30 tabs 03/18/22 loratadine 10 mg tablet 10 mg PO DAILY PRN Allergy 03/18/22 Symptoms 30 days #30 tabs olanzapine 15 mg tablet 15 mg PO BEDTIME 30 days #30 tabs 03/18/22 Mental Status Exam Mental Status Exam Narrative: Pt is alert and oriented; behavior is cooperative, mostly organized; patient is not in distress; dressed in casual attire; brushed hair, adequate hygiene; mood is described as good and affect anxious but overall more calm; very minimal eye contact; Speech is with some latency but less and able to speak longer without getting confused; still some thought blocking/internal preoccupation; but otherwise normal rate; normal volume; no psychomotor agitation/retardation present; thought process is goal oriented and more linear, sometimes tangential but minimally; Thought content is on making sense of her experiences, treatment and discharge; otherwise pertinent to relevant topics; no delusional or paranoid content expressed; Denies AVH; no SI or HI; Patients insight and judgment are impaired, but much improved and adequate. Data Data Completed and Pending Completed studies during hospitalization [Text1]: 03/11/22 07:56 Triglycerides 34 Cholesterol 148 LDL Cholesterol, Calc 100 HDL Cholesterol 42 DS: Summary Hospital Course Hospital Course: HPI: Patient is a 26-year-old female with history of psychosis, depression, anxiety recently discharged from [facility] (intending to transport her to [place]?) after refusing to take medications, eat or drink or get out of bed for 3 days.? On arriving to ED, note reports Patient...indifferent, disheveled...[with] blood sugar was 53... [refused to] eat or drink...[but] relented to having an IV placed and...given D50...with a slow rate D5W drip. Patient stabilized signed a CV coming to M5. On admission, patient seems confused, with speech latency/thought blocking and trouble paying attention to conversation, saying she forgot what the question was. She explained that she can have very hard time making decisions. Patient does have insight that she has some amount of psychiatric illness, including auditory hallucinations and she wants treatment for this. Hospital course: 03/11 patient remains disorganized with ; met with father who is supportive understands diagnosis 03/12 still disorganized; switched medications to Zydis since patient has trouble with pills. Discussed history and from patients reports, it sounds likely she meets criteria for ASD: avoids all eye contact and says she's done so for most of her life since it makes her uncomfortable; does not like to be touched by anyone; does not get jokes very easily; only 1 friend in high school; difficult time forming relationships; difficulty reading social cues; denies romantic relationships.? 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 03/13/2022:Olanzapine increased; Family reports Lexapro was helpful in the past and patient open to retrying same therefore restarted Lexapro but a lower dose of 5 mg; monitor regarding tolerability. 03/15 Patient starting to become more organized, still AH; discussed case with parents who will think about her hx and possible ASD 03/17 patient continues to be much more organized; denies AVH.? Mother present today who thinks her daughter is about a 01/10, 10 being patient's regular self; patient agrees.? Patient is asking for discharge and her mother thinks that she is ready to go home.? Patient says she will continue taking medications and is looking forward to outpatient treatment, asking again about the [facility] program.? Hospital Medical Assistant agrees that patient is appropriate to return to the community. She is fortunate to have loving, supportive parents who although are , are both devoted to their daughter and have become adept at co-parenting.? Patient is is eating and drinking without trouble; she is much more organized and with improved insight and judgment, agreeing to continue taking medications.? Patient will be returning home to live with her mother.? Patient is not in imminent risk for harm to self or others and her request for discharge honored. Regarding her symptoms and diagnosis: Schizoaffective disorder, bipolar type: -Mother shared some additional information and it appears that patient had a manic episode prior to her admission to [facility] this month.? -Today, Patient retracted her early reporting of AH; initially and in follow up conversations, patient reported having AH for 3 years but did not tell anybody, feeling a afraid to do; she said she is now revealing it for the 1st time; she also said she's heard 2 voices talking to each other about her.? Today however, on last day of admission, she says she is not sure they really were AH but perhaps just thoughts.? -Although patient has significantly improved and her organization, she remains confused and unsure about quite a number of things relating to her experiences in her past.? -At this point it seems to field underwriter that patient may either be minimizing her experience of AVH or remains to cloudy to articulate.? Given her reporting, presentation and recent history (including what sounds like manic episode) field underwriter diagnoses her with Schizoaffective disorder. PTSD: Patient has also consistently referenced that she has a history of trauma and says she has PTSD though does not want to talk about it.? ASD: Her parents doubt she has autism. They say that she used to make eye contact and did not avoid physical touch; both understand the concept of an autistic spectrum. 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 At this time, field underwriter will leave ASD as a Provisional diagnosis.? Hospital Medical Assistant concludes that it will take more time for diagnoses to crystallize. Time spent discussing smoking cessation with patient: 3 to 10 minutes Status at Discharge Functional status at discharge: independent ambulation Overall status at discharge: patient is progressing back to baseline Time Spent with Patient Time attestation: Total time spent providing and/or coordinating discharge services: Time spent: Less than 30 minutes Discharge Plan Discharge Patient Disposition: Home, Self-Care Discharge Diagnosis: Schizoaffective Disorder, bipolar type; ASD (rule out) Referrals: [facility] [Other] - 1 Week (You will be contacted by Dr. Kim Bell from the [facility] by next Tuesday03/26/22 to schedule the comprehensive assessment. There is currently about a 4-6 week wait to start the program) [facility]- Neuropsychology [Other] - 1 Week (You have been referred for Neuropsych testing at [facility]. It typically takes 3 months for you referral to be processed and reviewed. The waitlist is about 7 months to be scheduled for testing) Psychiatry: Dr. Tejeda [Other] - 03/30/22 11:30 am (This appointment is in-person) Jovan Strong MD [Physician] - 1 Week (OFFICE AWARE WILL CALL PT. WITH F/U APPOINTMENT.) Discharge Medications: New clonidine HCl 0.1 mg Tablet 0.1 mg PO TID PRN (Reason: Anxiety (try first)) 30 Days Qty: 90 1RF Protocol: Hold for SBP< HOLD for SBP < : 90 escitalopram oxalate 5 mg Tablet 5 mg PO DAILY 30 Days Qty: 30 1RF olanzapine 15 mg tablet 15 mg PO BEDTIME 30 Days Qty: 30 1RF Continued hydroxyzine HCl 50 mg Tablet 50 mg PO Q6H PRN (Reason: Anxiety) melatonin 3 mg Tablet 3 mg PO BEDTIME albuterol sulfate 90 mcg/actuation Hfa Aerosol Inhaler 2 puff INHALATION QID PRN (Reason: Dyspnea) 30 Days Qty: 6.7 0RF loratadine 10 mg Tablet 10 mg PO DAILY PRN (Reason: Allergy Symptoms) 30 Days Qty: 30 0RF Discontinued olanzapine 2.5 mg Tablet 2.5 mg PO BID lorazepam 0.5 mg Tablet 0.5 mg PO Q6H PRN (Reason: Anxiety) escitalopram oxalate 10 mg Tablet 10 mg PO DAILY Discharge Orders: Discharge Order (Routine); Ordered 03/18/22 Ordered By: Fred Wyatt Diet: Regular diet Activity on Discharge: As tolerated Stand Alone Forms: Patient Portal Discharge page, Community Support Print Language: Thai Care Plan Goals: Maintain mood and safe behaviors Take medications as prescribed Continue to pursue sobriety Practice coping skills Continue with outpatient providers and reach out to them as needed Health Concerns: Mood stability and behaviors Plan of Treatment: Follow up with your PCP, psychiatric provider and other outpatient providers regarding above concerns Take medications as prescribed Assessment: Risk assessment at time of discharge:? Patient was interviewed prior to discharge and found to be fully oriented and without any SI or HI. Patient has insight and demonstrates good judgment in terms of wanting to pursue treatment. Patient is not in imminent risk of harm to self or others and has a safety plan that includes presenting to the closest ER or calling 911 if feeling unsafe.? Patient has been observed closely by nursing and unit staff throughout admission; patient has not engaged in any behaviors that suggest dangerousness to self or others and has demonstrated appropriate behaviors and impulse control Discharge Date/Time: 03/18/22 14:47
== END 2022-03-18 14:47 | disposition home or self-care (01) | DRG 750 ==
LOC: HO.ED 03-08 17:45 → HO.PM5 03-09 15:34
PROVIDERS: Emergency Medicine; Physician Assistant Medical; Admitting Provider Psychiatry & Neurology Psychiatry; Emergency Provider Internal Medicine; Visit Provider Psychiatry & Neurology Psychiatry
DX: F25.0 Schizoaffective disorder, bipolar type (principal); F84.0 Autistic disorder; Z20.822 Contact with and (suspected) exposure to COVID-19; Z87.891 Personal history of nicotine dependence
CPT/HCPCS: 36415; 80053; 80061; 80143; 80179; 80307; 81025; 82077; 82947; 83036; 85025; 87635; 93005; 96365; 96375; 99285